=== PATIENT | male | born 1970 | race Caucasian/White ===

== ENCOUNTER 2025-02-18 11:49 | Outpatient (CLI) | payer BC, SELFPAY ==
--- NOTE | ~2025-02-18 | PE_ITS ---
EXAMINATION: PET skull to mid thigh DATE: 02/18/2025 14:06 INDICATION: Malignant neoplasm of mouth, unspecified. TECHNIQUE: Blood glucose level was 121 mg/dL. 9.688 mCi of 18-fluorodeoxyglucose (18-FDG) was administered i.v. Low dose computed tomography (CT) images were acquired from the base of the brain to the proximal thighs for attenuation correction and anatomic localization. Automated exposure control was employed. Dose-length product (DLP) was 1504 mGy-cm. Positron emission tomography (PET) images were acquired in the same distribution. COMPARISON: None FINDINGS: Head/neck: There is near complete opacification of right maxillary sinus with thickening and sclerosis of the sinus perry, consistent with chronic sinusitis. There has been resection of a portion of the right side of the mandible. There are surgical changes in right neck, likely flap reconstructions. There are no pathologically enlarged lymph nodes. There are normal-sized lymph nodes in the parotid glands bilaterally with maximum SUV of 3.1. There are normal-sized left submandibular and right supraclavicular lymph nodes with mildly increased activity. Chest: There is no pneumonia or pleural effusion. Calcified right hilar lymph nodes are consistent with old granulomatous disease. The heart size is normal. There are coronary artery calcifications. No pericardial effusion. There are surgical changes in right anterior chest wall. There is increased activity in the subcutaneous fat and muscle in the posterior thorax, likely inflammation. There is a 13 mm sebaceous cyst in the posterior thorax the left of midline. Abdomen/pelvis/proximal thighs: The liver and gallbladder are normal. Splenomegaly is noted. There is a gastrostomy tube in expected position. The pancreas, adrenal glands, and kidneys are normal. There is trace pelvic ascites. There are no dilated loops of bowel. There are no pathologically enlarged lymph nodes. There is no free intraperitoneal fluid. There is no osseous malignancy. There is increased activity in the posterior pelvis subcutaneous fat and muscle, right worse than left, likely inflammation. IMPRESSION: 1. Normal-sized bilateral parotid, left submandibular, and right supraclavicular lymph nodes with mildly increased activity, which may be reactive. Metastatic disease is not excluded. Reviewed, dictated and finalized at location E. IMPRESSION: 1. Normal-sized bilateral parotid, left submandibular, and right supraclavicula r lymph nodes with mildly increased activity, which may be reactive. Metastatic disease is not excluded.
--- OUTSIDE RECORDS SUMMARY | 2025-02-18 13:02 | XMS_ITS ---
Author Organization [facility] Care Team Providers Care Rail Bonder Name Role Phone BLAIR MADRID Unavailable Unavailable Allergies and adverse reactions No Known Allergies Care Team Name Role Address Phone Organization Dates BLAIR MADRID PCP [address] [place], [address], [place] (Office): : [facility] 05/27/2017 - 06/17/2017 Immunizations Immunization Status Vaccine Details Vaccine Code CodeSystem Marcos e Notes TB 2 Step Mantoux Skin Test completed tuberculin skin test; unspecified formulation lotNumber: [id number] expiry: 10/26/2018 Given 0.1 ml Right Forearm intradermally Step 1 of Multi-step with next step required 98 CVX created date: 05/29/2017 consent date: 05/29/2017 administere d date: 05/28/2017 Mental Status Section Date Assessment Total Score Description 06/17/2017 BIMS 15 cognitively int act CAM 0 No delirium ind icated PHQ-9 00 06/10/2017 BIMS 15 cognitively int act CAM 0 No delirium ind icated PHQ-9 00 Insurance Providers Problems Problem # Description Date of onset Resolved Date Code CodeSystem Concern Status 1 MUSCLE WEAKNESS (GENERALIZED) 05/30/[address] active 2 OTHER ABNORMALITIES OF GAIT AND MOBILITY 05/28/[address] active 3 ESSENTIAL (PRIMARY) HYPERTENSION 05/27/[address] active 4 REAGAN GANGRENE 05/27/[address] active 5 INSOMNIA, UNSPECIFIED 05/27/[address] active 6 MORBID (SEVERE) OBESITY DUE TO EXCESS CALORIES 05/27/[address] active 7 OTHER INFLAMMATORY DISORDERS OF PENIS 05/27/[address] active 8 OTHER POLYOSTEOARTHRITIS 05/27/[address] active 9 SLEEP APNEA, UNSPECIFIED 05/27/[address] active 10 TYPE 2 DIABETES MELLITUS WITH OTHER SKIN COMPLICATIONS 05/27/[address] active 11 UNSPECIFIED ATRIAL FIBRILLATION 05/27/[address] active Reason for Referral No Reasons for Referral Entered Social History Social History Observation Description Start Date End Date Code Code System Current Smoking Status Tobacco smoking consumption unknown 678819645 SNOMED CT Sex Assigned At Male 1970 70162-4 [facility] Gender Identity Sexual Orientation Vital Signs Code Code System Vitals Name Values and Units Timing Information 2339-0 [facility] Blood Sugar Nwatc=762.0 Units=mg/dL 06/17/2017 9279-1 [facility] Respiratory Rate Value=18.0 Units=/m in 06/17/2017 8462-4 [facility] Blood Pressure-Diastolic Value=89 Un its=mmHg 06/17/2017 8480-6 [facility] Blood Pressure-Systolic Nyxbw=303 Un its=mmHg 06/17/2017 8310-5 [facility] Body Temperature Value=97.9 Units= F 06/17/2017 8867-4 [facility] Heart rate Value=90.0 Units=/min 15364-5 [facility] O2 % BldC Oximetry Value=98.0 Units= % 06/17/2017 31084-8 [facility] Pain Level Value=0.0 06/17/2017 51069-9 [facility] Weight Lrhxq=638.6 Units=Lbs 8302-2 [facility] Height Value=72.0 Units=Inches 05/28/2017
--- OUTSIDE RECORDS SUMMARY | 2025-02-18 13:02 | XMS_ITS | Encounter Summary ---
Author Organization [facility] Address [address] [place] [address] Care Team Providers Care Media Law Faculty Member Name Role Phone Unavailable Primary Care Provider Unavailabl e Encounter Details Date Type Department Care Team (Late Contact Info) Description 02/17/2025 External Device Data [facility] ABSTRACTION Provider, Abstract NO ADDRESS ON FILE Social History Tobacco Use Types Packs/Day Years Used Date Smoking Tobacco: Former Cigarettes Smokeless Tobacco: Former Alcohol Use Standard Drinks/Week Comments Not Currently 0 (1 standard drink = 0.6 oz pur e alcohol) Feeling Safe Answer Date Recorded Are you in a relationship wi th someone who hurts you emotionally and/or physically? 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 [facility] [address] [place] [address] documented as of this encounter Visit Diagnoses Not on filedocumented in this encounter
--- OUTSIDE RECORDS SUMMARY | 2025-02-18 13:02 | XMS_ITS ---
Author Organization [facility] Address [address] 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 Chronic heart failure with p reserved ejection fraction (HFpEF) 12/29/2024 HTN (hypertension), benign 12/29/2024 Type 2 diabetes mellitus wit h hyperglycemia, with long-term current use of insulin 12/25/2024 Acute respiratory distress 12/25/2024 Airway compromise 12/25/2024 Tracheostomy status 12/24/2024 Encounter for postoperative care 12/24/2024 Status post tracheostomy 12/24/2024 Lower extremity edema 12/24/2024 Malignant neoplasm of lower gum 12/12/2024 Other shock 12/12/2024 Acute blood loss anemia 12/12/2024 Paroxysmal atrial fibrillati on with rapid ventricular response 12/11/2024 Malignant neoplasm of alveolus of mandible 12/10 Morbid obesity with BMI of 50.0-59.9, adult 11/27 Iron deficiency anemia 12/10/2024 Thrombocytopenia affecting 12/10/2024 Atrial fibrillation 12/10/2024 Protein-calorie malnutrition, moderate Overview (12/10/2024): 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 fib Asymptomatic Lipids in June TC 126 LDL 63 Encounter for screening for malignant neoplasm 0 06/30/2024 Overview (10/29/2024): PSA 0.35. Congestive heart failure 12/30/2023 Overview (10/29/2024): apparent on echo 08/2017 w/ EF 45-50% (on [facility] eval after new dx A.fib 04/2017). f/b [facility]. Edema 07/20/2021 Overview (10/29/2024): Uses compression garments Sounds like he saw vascular with SC, but f/u was PRN CANELO (obstructive sleep apnea) 07/20/2021 Overview (10/29/2024): dx on sleep study at [facility] 12/2018. Titration study identified BiPap treatment need. 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 Other Current Plans ERTAPENEM (INVANZ) * IV * DAILY X 6 WEEKS* Plan Start Date:01/26/2025 Plan Provider:Jose Edwards MD Linked Problems Acute osteomyelitis of kp ble Treatment Medications No medications scheduled. Past Treatment and Therapy Plans No past plan information found. Lifetime Dose Tracking * Chemical Lifetime Dose Automatic Entry Manual Entr y Effective Dose 6.77 mSv 6.77 mSv 0 mSv Total DLP 562.52 DLP 562.52 DLP 0 DLP CTDIvol Max 16.84 mGy 16.84 mGy 0 mGy CTDIvol Min 16.84 mGy 16.84 mGy 0 mGy
--- OUTSIDE RECORDS SUMMARY | 2025-02-18 13:03 | XMS_ITS | Clinical Summary ---
Author Organization [facility] Address [address] [place] [address] Phone Care Team Providers Care Line Crew Supervisor Name Role Phone Unavailable Primary Care Provider Unavailabl e Allergies No known active allergies Medications omeprazole (PriLOSEC) 20 mg Capsule, Delayed Release(E.C.) Take 20 mg by mouth daily. 07/20/19 Active acetaminophen (TYLENOL) 500 mg tablet Take 1,000 mg by mouth every 6 hours as needed for Pain. Active Insulin [place], Disposable, (UltiCare Pen Needle) 31 gauge x 5/16 Needle Use with insulin injections up FOUR TIMES A DAY Active atorvastatin (LIPITOR) 20 mg tablet Take 20 mg by mouth daily. 07/20/19 Active carvediloL (COREG) 6.25 mg tablet Take 6.25 mg by mouth 2 times daily. 11/08/19 Active cetirizine (ZyrTEC) 10 mg tablet Take 10 mg by mouth daily. Active dofetilide (TIKOSYN) 500 mcg capsule Take 500 mcg by mouth 2 times daily. Active NovoLOG Flexpen U-100 Insulin 100 unit/mL (3 mL) pen syringe inject per sliding scale with meals - Below 80 - 27 units, 81-150 - 30 units, 151- 200 units - 33 units, 201- 250 - 36 units, 251-300 - 39 units, 301-350 - 42 units, 351 - 400 - 45 units, over 400 - 48 units 07/20/19 Active lisinopriL (PRINIVIL) 40 mg tablet Take 20 mg by mouth daily. 07/20/19 Active Ozempic 2 mg/dose (8 mg/3 mL) Pen Injector INJECT 2 MG UNDER THE SKIN ONCE WEEKLY 07/20/19 Active metFORMIN (GLUCOPHAGE) 1,000 mg tablet Take 1,000 mg by mouth 2 times daily with meals. Active insulin glargine (LANTUS) 100 unit/mL pen syringe Inject 62 Units by subcutaneous injection daily at bedtime. 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 Max Daily Amount: 6 Tablets 40 Tablet 11/26/19 25 Active ferrous sulfate 325 mg (65 mg iron) tablet Take 325 mg by mouth daily. Active apixaban (Eliquis) 5 mg tablet Take 5 mg by mouth 2 times daily. Active HYDROcodone-acetam inophen (NORCO) 5-325 mg tabletIndications: Post-op pain Take 1 Tablet by mouth every 4 hours as needed for Pain, Moderate. Max Daily Amount: 6 Tablets 30 Tablet 01/20/20 25 Active metroNIDAZOLE (FLAGYL) 500 mg tablet 1 Tablet (500 mg) by G Tube route every 8 hours. 63 Tablet 01/20/20 25 Active Additional Information Patient not taking.Reported on 02/02/2025 mupirocin (BACTROBAN) 2 % OintmentIndication s:MSSA (methicillin susceptible Staphylococcus aureus) infection Apply to affected area daily. 22 Gram 1 02/03/20 25 Active cefePIME (MAXIPIME) 2,000 mg in sodium chloride 0.9 % for home infusion Inject 1 Dose by intravenous injection every 12 hours for 21 days. 42 Dose 01/20/20 25 025 Active Problems Problem Noted Date Diagnosed Date [...] Acute Squamous cell carcinoma of oral cavity Dyslipidemia 10/29/2024 Overview (10/29/2024): Takes atorvastatin 20 mg daily No aspirin, on warfarin for A. fib Asymptomatic Lipids in June TC 126 LDL 63 Encounter for screening for malignant neoplasm 0 06/30/2024 Overview (10/29/2024): PSA 0.35. Congestive heart failure 12/30/2023 Overview (10/29/2024): apparent on echo 08/2017 w/ EF 45-50% (on [facility] eval after new dx A.fib 04/2017). f/b [facility]. Edema 07/20/2021 Overview (10/29/2024): Uses compression garments Sounds like he saw vascular with SC, but f/u was PRN CANELO (obstructive sleep apnea) 07/20/2021 Overview (10/29/2024): dx on sleep study at [facility] 12/2018. Titration study identified BiPap treatment need. 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) 02/16/2025 Chart Note [facility] [address] [facility] [address] [place] [address] Lakshmi Thomson, ARTI 02/12/2025 Abstract [facility] [address] [facility] [address] [place] [address] Jose Edwards MD 02/10/2025 Telephone [facility] [address] [facility] [address] [place] [address] Jaquelin Samuels, RN Follow Up 02/08/2025 Telephone [facility] [address] [facility] [address] [place] [address] Jaquelin Samuels, RN Home Health 02/08/2025 Abstract [facility] INFECT[facility] [address] [facility] [address] [place] [address] Jose Edwards MD 02/08/2025 Telephone [facility] IN[facility] B [address] [facility] [address] [place] [address] Jose Edwards MD Verbal orders 02/05/2025 Abstract [facility] [address] [facility] [address] [place] [address] Jose Edwards MD 02/02/2025 11:00 AM CDT Office [facility] [address] [facility] [address] [place] [address] Lakshmi Thomson SLP 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); 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); Oropharyngeal dysphagia 02/02/2025 10:30 AM CDT Office [facility] [address] [facility] [address] [place] [address] Nitin Martinez PA 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) 02/02/2025 9:30 AM CDT [facility] [address] [facility] [address] [place] [address] Jose Edwards MD MSSA (methicillin susceptible Staphylococcus aureus) infection (Primary Dx) 02/01/2025 Abstract [facility] INFECT[facility] B [address] [facility] [address] [place] [address] Jose Edwards MD 01/29/2025 Telephone [facility] [address] [facility] [address] [place] [address] Jaquelin Samuels, JADE Home Health 01/29/2025 Chart Note [facility] Oncology Patient Navigation [address] [place] [address] Miladis Reed, RN Nurse Navigation (Follow up) 01/28/2025 Abstract [facility] B [address] [facility] [address] [place] [address] Jose Edwards MD 01/27/2025 Chart Note [facility] Oncology Patient Navigation [address] [place] [address] Miladis Reed, RN Nurse Navigation (Follow up) 01/26/2025 11:13 AM CDT - 01/26/2025 11:59 PM CDT Hospital Encounter [facility] Cancer [facility] Center [facility] [address] [place] [address] Jose Edwards MD Infusion Chair 11, 2nd Floor [place] Discharge Disposition: Home or Self Care 01/26/2025 10:30 AM CDT Office [facility] [address] [facility] [address] [place] [address] Stanley Stern MD 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 Patient Navigation [address] [place] [address] Miladis Reed, RN Nurse Navigation (Follow up) 01/26/[address] [facility] Patient Navigation [address] [place] [address] Sahra Cortés, DIRECTOR OF BUSINESS APPLICATIONS Information 01/25/2025 Chart Note [facility] Oncology Patient Navigation [address] [place] [address] Miladis Reed, RN Nurse Navigation (Follow up) 01/25/2025 Abstract [facility] B [address] [facility] [address] [place] [address] Jose Edwards MD 01/25/[address] [facility] Patient Navigation [address] [place] [address] Miladis Reed, RN Nurse Navigation (Follow up) 01/22/2025 Telephone [facility] [address] [facility] [address] [place] [address] Jose Edwards MD change antibiotics 01/22/2025 Telephone [facility] [address] [facility] [address] [place] [address] Jose Edwards MD Diarrhea 01/22/2025 Telephone [facility] Endocrinology [address] [facility] [address] [place] [address] Jose Edwards MD Medication Problem 01/22/2025 Chart Note [facility] Oncology Patient Navigation [address] [place] [address] Miladis Reed, RN Nurse Navigation (Follow up) 01/22/2025 Chart Note [facility] Oncology Patient Navigation [address] [place] [address] Miladis Reed, RN Nurse Navigation (Follow up) 01/21/2025 Abstract [facility] [address] [facility] [address] [place] [address] Jose Edwards MD 01/21/2025 Chart Note [facility] Oncology Patient Navigation [address] [place] [address] Miladis Reed, RN Nurse Navigation (Follow up) 01/20/2025 Chart Note [facility] Oncology Patient Navigation [address] [place] [address] Miladis Reed, RN Nurse Navigation (Follow up) 01/12/2025 External Device Data STL ABSTRACTION Provider, Abstract 01/12/2025 External Device Data STL ABSTRACTION Provider, Abstract 01/12/2025 Telephone [facility] Spiritual Care [address] [place] [address] Darron Ko Spiritual Care (Met with pt in person; he now has all my contact info and I will support moving forward.) 01/11/2025 Chart Note [facility] Oncology Patient Navigation [address] [place] [address] Miladis Reed, RN Nurse Navigation (Follow up) 01/05/2025 Telephone [facility] [address] [place] [address] Darron Ko Spiritual Care 01/04/2025 Chart Note [facility] Oncology Patient Navigation [address] [place] [address] Miladis Reed, RN Nurse Navigation (Follow up) 01/01/2025 9:36 AM CDT Anesthesia Event [facility] Operating Room [address] [place] [address] Theo Ni MD 01/01/2025 9:01 AM CDT - 01/01/2025 12:01 PM CDT Surgery [facility] Operating Room [address] [place] [address] Stanley Stern MD NECK INCISION AND DRAINAGE 01/01/2025 Chart Note [facility] Oncology Patient Navigation [address] [place] [address] Miladis Reed, RN Nurse Navigation (Follow up) 12/31/2024 Chart Note [facility] [address] [facility] [address] [place] [address] Jaquelin Samuels RN 12/31/2024 Chart Note [facility] [address] [facility] [address] [place] [address] Stanley Stern MD 12/30/2024 1:03 PM CDT Anesthesia Event [facility] Operating Room [address] [place] [address] Rochelle Galaviz MD 12/30/2024 12:45 PM CDT - 12/30/2024 2:51 PM CDT Surgery [facility] Operating Room [address] [place] [address] Evan Johnston MD NECK INCISION AND DRAINAGE 12/29/2024 External Device Data STL ABSTRACTION Provider, Abstract 12/29/2024 Chart Note [facility] [address] [facility] [address] [place] [address] Jaquelin Samuels RN 12/18/2024 12:47 PM CDT - 12/18/2024 4:24 PM CDT Surgery [facility] Operating Room [address] [place] [address] Stanley Stern MD NECK EXPLORATION 12/18/2024 11:55 AM CDT Anesthesia Event [facility] Operating Room [address] [place] [address] Vikas Hendrickson MD Miller, Brittany M, AA-C 12/16/2024 External Device Data STL ABSTRACTION Provider, Abstract 12/15/2024 External Device Data STL ABSTRACTION Provider, Abstract 12/15/2024 External Device Data STL ABSTRACTION Provider, Abstract 12/15/2024 Chart Note [facility] Oncology Patient Navigation [address] [place] [address] Miladis Reed, RN Nurse Navigation (Follow up) 12/14/2024 Chart Note [facility] Oncology Patient Navigation [address] [place] [address] Ginny Hutchinson, RN Nurse Navigation (Follow up) 12/13/2024 12:40 PM CDT - 12/13/2024 5:23 PM CDT Surgery [facility] Operating Room [address] [place] [address] Stanley Stern MD NECK EXPLORATION WITH EVACUATION OF HEMATOMA 12/13/2024 12:32 PM CDT Anesthesia Event [facility] Operating Room [address] [place] [address] Nancy Baeza MD Redmond, Robert Ryan, MILAGRO 12/13/2024 Travel 12/12/2024 5:08 AM CDT Anesthesia Event [facility] Operating Room [address] [place] [address] Evan Espinal MD Weber, Brian Louis, MD 12/12/2024 4:15 AM CDT - 12/12/2024 6:58 AM CDT Surgery [facility] Operating Room [address] [place] [address] Stanley Stern MD NECK EXPLORATION 12/09/2024 7:29 AM CDT Anesthesia Event [facility] Operating Room [address] [place] [address] Williams Perez MD Algra, Linda J, MD 12/09/2024 7:15 AM CDT - 12/09/2024 4:03 PM CDT Surgery [facility] Operating Room [address] [place] [address] Evan Johnston MD NECK DISSECTION 12/09/2024 5:00 AM CDT - 01/19/2025 7:31 PM CDT Hospital Encounter [facility] Med Surg Step Down [facility] [address] [place] [address] Evan Johnston MD Squamous cell carcinoma of oral cavity ([facility]/HCC) Discharge Disposition: Home Health Care [facility] 12/08/2024 Telephone [facility] [address] [facility] [address] [place] [address] Stanley Stern MD Care Plan 12/08/2024 Chart Note [facility] Oncology Patient Navigation [address] [place] [address] Ginny Hutchinson, RN Nurse Navigation (Follow up) 12/07/2024 Chart Note [facility] Oncology Patient Navigation [address] [place] [address] Miladis Reed, RN Nurse Navigation (Follow up) 12/03/2024 Chart Note [facility] Oncology Patient Navigation [address] [place] [address] Miladis Reed, RN Nurse Navigation (Follow up) 11/30/2024 2:24 PM CDT - 11/30/2024 11:59 PM CDT Hospital Encounter [facility] [address] [place] [address] Evan Johnston MD Discharge Disposition: Home or Self Care 11/30/2024 Chart Note [facility] Oncology Patient Navigation [address] [place] [address] Miladis Reed, RN Nurse Navigation (Follow up) 11/28/2024 8:49 AM CDT - 11/28/2024 11:59 PM CDT Hospital Encounter [facility] Ultrasound [address] [facility] [address] [place] [address] Good Yi MD Discharge Disposition: Home or Self Care 11/26/2024 Chart Note [facility] Oncology Patient Navigation [address] [place] [address] Miladis Reed, RN Nurse Navigation (Follow up) 11/25/2024 Chart Note [facility] Patient Navigation [address] [place] [address] Miladis Reed, RN Nurse Navigation (Follow up) 11/23/2024 Telephone [facility] Nutrition Services S [facility] [address] [place] [address] Dietitian Services (Attempt to Contact) from Last 3 Months Immunizations Immunization Administration Dates Next Due (ADACEL/BOOSTRIX)(10 YR UP) TDAP VACCINE, 0.5ML, IM 07/04/2010 (PNEUMOVAX 23)(50 YRS UP) PN EUMOCOCCAL POLYSACCHARIDE (PPV23) 0.5 ML, IM 07/20/2021 Hepatitis B Vaccine 02/24/2007,10/03/2006,2006 Influenza Seasonal Unspecifi ed Formulation IM 02/06/2017,02/05/2014 Influenza Seasonal Unspecifi ed Formulation PF IM 02/21/2016,02/14/2015 Influenza, Unspecified Formulation 02/15,02/25/2020,02/04/2019,02/06,02/21/2016,02/14/2015,02/05/2014 Social History Tobacco Use Types Packs/Day Years Used Date Smoking Tobacco: Former Cigarettes Smokeless Tobacco: Former Tobacco Cessation:Counseling Given: Not Answered Alcohol Use Standard Drinks/Week Comments Not Currently [...] on file Sexual Orientation Not on file Last Filed Vital Signs Vital Sign Reading Time Taken Comments Blood Pressure 145/55 02/02/2025 9:21 AM CDT Pulse 59 02/02/2025 9:21 AM CDT Temperature 36.8 C (98.3 F) 01/26/2025 12:46 PM CDT Respiratory Rate 18 01/26/2025 12:46 PM CDT Oxygen Saturation 100% 01/19/2025 3:00 PM CDT Inhaled Oxygen Concentration - - Weight 166.5 kg (367 lb) 02/02/2025 9:21 AM CDT Height 182.9 cm (6') 02/02/2025 9:21 AM CDT Body Mass Index 49.77 02/02/2025 9:21 AM CDT Plan of Treatment Upcoming Encounters Date Type Department Care Team (Late st Contact Info) Description 06/24/2025 11:20 AM 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 [place] [address] Health Maintenance Due Date Last Done Comments DIABETES ANNUAL FOOT EXAM 1988 DIABETES ANNUAL RETINAL EXAM 1988 DIABETES MICROALBUMIN ANNUAL SCREEN 1988 LDL CHOLESTEROL ANNUAL 1988 HEPATITIS B VACCINES (1 of 3 - 19+ 3-dose series) 1989 02/24/2007, 10/03/2006, 08/21/2006 COLORECTAL SCREENING 2015 Colorectal Cancer Screening 2015 FIT-DNA Q 3 years 2015 FIT/FOBT Q 1 year 2015 Flex Sig/CT Colonography Q 5 years 2015 ZOSTER VACCINE (1 of 2) 2020 DTAP/TDAP/TD VACCINES (2 - T d or Tdap) 07/04/2020 07/04/2010 Preventative Visit- Commercial 04/29/2024 INFLUENZA VACCINE (#1) 2024 7, 02/21/2016, 02/14/2015, Additional history exists DIABETES HBA1C Q 6 MONTHS 05/13/2025 11/10/2024, Medical Devices Implanted Type Area Staffing And Scheduling Coordinator Device Identifier Shelf Expiration Date Model / Serial / Lot Clip Micro [place] 6s [id number] - [id number] Implanted:Qty: 1 on 12/09/2024 by Stanley Stern MD at [facility] Clip Right: Neck VITALITEC INTL [id number] 07/27/2029 [id number] / / [id number] Clip Micro [place] 6s [id number] - [id number] Implanted:Qty: 1 on 12/09/2024 by Stanley Stern MD at [facility] Clip Right: Neck VITALITEC INTL [id number] 07/27/2029 [id number] / / [id number] Windows Server Architect Ligaclip Sml Mcs20 - [id number] Implanted:Qty: 1 on 12/09/2024 by Evan Johnston MD at [facility] Clip Right: Neck [employer] [id number] 09/26/2029 MCS20 / / [id number] Windows Server Architect Ligaclip Multi Med Msm20 - [id number] Implanted:Qty: 1 on 12/09/2024 by Evan Johnston MD at [facility] Clip Right: Neck J[employer] [id number] 09/26/2029 MSM20 / / [id number] Windows Server Architect Ligaclip Sml Mcs20 - [id number] Implanted:Qty: 1 on 12/09/2024 by Stanley Stern MD at [facility] Clip Left: Arm J[employer]- [employer] [id number] 09/26/2029 MCS20 / / [id number] Windows Server Architect Ligaclip Mca Multi 30 Med 11in Mcm30 - [id number] Implanted:Qty: 1 on 12/09/2024 by Stanley Stern MD at [facility] Clip Left: Arm [employer] [id number] 09/26/2029 MCM30 / / [id number] Windows Server Architect Ligaclip Sml Mcs20 - [id number] Implanted:Qty: 1 on 12/09/2024 by Stanley Stern MD at [facility] Clip Left: Arm [employer]- [employer] [id number] 09/26/2029 MCS20 / / [id number] Clip Micro [place] 6s [id number] - [id number] Implanted:Qty: 1 on 12/12/2024 by Stanley Stern MD at [facility] Clip N/A: Neck VITAL[employer] INTL [id number] 07/27/2029 [id number] / / [id number] Windows Server Architect Ligaclip Sml Mcs20 - [id number] Implanted:Qty: 1 on 12/13/2024 by Stanley Stern MD at [facility] Clip N/A: Neck J[employer] [id number] 09/26/2029 MCS20 / / [id number] Windows Server Architect Ligaclip Multi Med Msm20 - [id number] Implanted:Qty: 1 on 12/13/2024 by Stanley Stern MD at [facility] Clip N/A: Neck J[employer] [id number] 09/25/2029 MSM20 / / Windows Server Architect Ligaclip Sml Mcs20 - [id number] Implanted:Qty: 1 on 12/18/2024 by Stanley Stern MD at [facility] Clip N/A: Neck J[employer]J- [employer] [id number] 09/26/2029 MCS20 / / [id number] Windows Server Architect Ligaclip Multi Med Msm20 - [id number] Implanted:Qty: 1 on 12/18/2024 by Stanley Stern MD at [facility] Clip N/A: Neck J[employer] [id number] 09/26/2029 MSM20 / / [id number] Windows Server Architect Ligaclip Mca Multi 30 Med 11in Mcm30 - [id number] Implanted:Qty: 1 on 12/18/2024 by Stanley Stern MD at [facility] Clip N/A: Neck J[employer] [id number] 09/26/2029 MCM30 / / [id number] Windows Server Architect Ligaclip Sml Mcs20 - [id number] Implanted:Qty: 1 on 12/18/2024 by Stanley Stern MD at [facility] Clip N/A: Neck J[employer]J- [employer] [id number] 09/26/2029 MCS20 / / [id number] Windows Server Architect Ligaclip Multi Med Msm20 - [id number] Implanted:Qty: 1 on 01/01/2025 by Stanley Stern MD at [facility] Clip J&J- [employer] [id number] 11/26/2029 [facility]20 / / [id number] Windows Server Architect Ligaclip Sml [facility]20 - [id number] Implanted:Qty: 1 on 01/01/2025 by Stanley Stern MD at [facility] Clip J&J- [employer] [id number] 07/27/2029 [facility]20 / / [id number] Tube Feeding Josee Gastro 20fr Enfit Cnc 8100-20 - [id number] Implanted:Qty: 1 on 12/30/2024 by Jose Leslie MD at [facility] Feeding Device Abdomen [employer] fka HALYARD [id number] 08/26/2027 8100-20 / / [id number] Wax Bone Natural 2.5gm Ylw Ofmvmv15 - [id number] Implanted:Qty: 1 on 12/09/2024 by Stanley Stern MD at [facility] Hemostatic Left: Arm [employer] [id number] 02/24/2029 [id number] / / [id number] Hemostatic Surgifoam Sz12-7 1971 - [id number] Implanted:Qty: 1 on 12/09/2024 by Stanley Stern MD at [facility] Hemostatic Right: Neck J&J- [employer] [id number] 06/24/20271971 / / Hemostatic Surgifoam Sz100 1973 - [id number] Implanted:Qty: 1 on 12/13/2024 by Stanley Stern MD at [facility] Hemostatic N/A: Neck J&J- [employer] 10/06/20281973 / / [id number] Motel Maid Microvasc Anastomotic 4.0mm [id number] - [id number] Implanted:Qty: 1 on 12/09/2024 by Stanley Stern MD at [facility] Other Right: Neck [employer] 09/27/2027 [id number] / / Motel Maid Microvasc Anastomotic 1.5mm Yrs8290 - [id number] Implanted:Qty: 1 on 12/12/2024 by Stanley Stern MD at [facility] Other Right: Neck [employer] [id number] 04/01/2028 [id number] / / [id number] Motel Maid Microvasc Anastomotic 3.5mm [id number] - [id number] Implanted:Qty: 1 on 12/12/2024 by Stanley Stern MD at [facility] Other Right: Neck SYNOVIS- MICRO CO ALLIANCE [id number] 01/19/2029 [id number] / / [id number] Motel Maid Microvasc Anastomotic 1.5mm [id number] - [id number] Implanted:Qty: 1 on 12/13/2024 by Stanley Stern MD at [facility] Other Right: Neck [employer]OVIS[employer] MI[employer] ALLIANCE [id number] 04/01/2028 [id number] / / [id number] Motel Maid Microvasc Anastomotic 1.5mm [id number] - [id number] Implanted:Qty: 1 on 12/13/2024 by Stanley Stern MD at [facility] Other N/A: Neck SYNOVIS- MI[employer] ALLIANCE [id number] / / Description:ischemic time Synthes 9 Hole Diameta Plate Implanted:Qty: 1 on 12/09/2024 by Stanley Stern MD at [facility] Plate Left: Radius SY[employer]THES [employer] [facility] 02.110.109S / / Description:[id number] Screw Cortex Slftp T8 2.4x16mm 201.766 - Sload 43, Sterilized 12/07/24 Implanted:Qty: 2 on 12/09/2024 by Stanley Stern MD at [facility] Screw Left: Radius J&J- DEPUY SYNTHES 201.766 / LOAD 43, STERILIZED 12/07/24 / Screw Cortex Slftp T8 2.4x18mm 201.768 - Sload 43, Sterilized 12/07/24 Implanted:Qty: 2 on 12/09/2024 by Stanley Stern MD at [facility] Screw Left: Radius J&J- DEPUY SYNTHES 201.768 / LOAD 43, STERILIZED 12/07/24 / Screw Cortex Slftp 3.5x18mm 204.818 - Sload 27, Sterilzied 12/07/24 Implanted:Qty: 2 on 12/09/2024 by Stanley Stern MD at [facility] Screw Left: Radius J&J- DEPUY SYNTHES 204.818 / LOAD 27, STERILZIED 12/07/24 / Screw Cortex Slftp 3.5x16mm 204.816 - Sload 27, Sterilzied 12/07/24 Implanted:Qty: 2 on 12/09/2024 by Stanley Stern MD at [facility] Screw Left: Radius J&J- DEPUY SYNTHES 204.816 / LOAD 27, STERILZIED 12/07/24 / Screw Matrixmandible St 2.0mm 04.503.410.01 - [id number] Implanted:Qty: 2 on 12/09/2024 by vEan Johnston MD at [facility] Screw J&J- DEPUY SYNTHES 04.503.410. 01 / / Screw Matrixmandible St Loc 2.0mm 503.610.01 - [id number] Implanted:Qty: 1 on 12/09/2024 by Evan Johnston MD at [facility] Screw J&J- DEPUY SYNTHES 04.503.610. 01 / / Screw Matrixmandible St Loc 2.0mm .612.01 - [id number] Implanted:Qty: 1 on 12/09/2024 by Evan Johnston MD at [facility] Screw J&J- DEPUY SYNTHES 04.503.612. 01 / / Screw Matrixmandible St Loc 2.0mm .614.01 - [id number] Implanted:Qty: 2 on 12/09/2024 by Evan Johnston MD at [facility] Screw J&J- DEPUY SYNTHES 04.503.614. 01 / / Screw Sd Loc 2.0x6mm 04..546.01 - [id number] Implanted:Qty: 1 on 12/09/2024 by Evan Johnston MD at [facility] Screw J&J- DEPUY SYNTHES 04.503.546. 01 / / Screw Sd Loc 2.0x8mm 503.548.01 - [id number] Implanted:Qty: 4 on 12/09/2024 by Evan Johnston MD at [facility] Screw J&J- DEPUY SYNTHES 503.548. 01 / / Matrixmandbl Screw 2.0x8mm Implanted:Qty: 2 on 12/09/2024 by Evan Johnston MD at [facility] Screw SYNTHES-STRAT EC- MAXIFACIAL 503.508. 01 / / Shiley Tracheostomy Tube Xlt Cuffed Implanted:Qty: 1 on 12/09/2024 by Stanley Stern MD at [facility] N/A: Neck [id number] 12/28/2028 [id number] / / [id number] Explanted Type Area Staffing And Scheduling Coordinator Device Identifier Shelf Expiration Date Model / Serial / Lot Motel Maid Microvasc Anastomotic 2.0mm [id number] - [id number] Explanted:Qty: 1 on 12/12/2024 by Stanley Stern MD at [facility] Other Right: Neck [employer]IS[employer] MI[employer] ALLIANCE [id number] 07/28/2028 [id number] / / [id number]- [id number] Screw Matrixmandible St 2.0mm .503.410.01 - Sload 12/08/2024 Implanted:Qty: 1 on 12/13/2024 by Stanley Stern MD at [facility] Explanted:Qty: 1 on 12/30/2024 by Evan Johnston MD at [facility] Screw N/A: Mandible J&J- DEPUY SYNTHES 04.503.4 10.01 / LOAD 43 12/09/19 25 / Screws Explanted:Qty: 4 on 12/18/2024 by Stanley Stern MD at [facility] N/A: Neck 12mm Screw Synthes Matrix Mandible Implanted:Qty: 2 on 12/09/2024 by Evan Johnston MD at [facility] Explanted:Qty: 2 on 12/30/2024 by Evan Johnston MD at [facility] Mandible 04.503.4 03.29 Hole Recon Plate Implanted:Qty: 1 on 12/09/2024 by Evan Johnston MD at [facility] Explanted:Qty: 1 on 12/30/2024 by Evan Johnston MD at [facility] Right: Mandible 04.503.7 Description:Not all Synthes components,Requisition, [id number]. 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) Oropharyngeal dysphagia TELEMETRY REPORT 01/20/2025 12:3 0 PM CDT POC GLUCOSE Routine 01/19/2025 12:26 PM CDT POC GLUCOSE Routine 01/19/2025 9:04 AM CDT C-REACTIVE PROTEIN Routine 01/19/2025 6: 51 AM CDT CBC WITHOUT DIFFERENTIAL Routine 025 6:51 AM CDT BASIC METABOLIC PANEL Routine 01/19/2025 6:51 AM CDT POC GLUCOSE Routine 01/19/2025 4:16 AM CDT POC GLUCOSE Routine 01/19/2025 12:22 AM CDT POC GLUCOSE Routine 01/18/2025 7:53 PM CDT POC GLUCOSE Routine 01/18/2025 4:04 PM CDT POC GLUCOSE Routine 01/18/2025 12:32 PM CDT POC GLUCOSE Routine 01/18/2025 8:07 AM CDT MAGNESIUM LEVEL Routine 01/18/2025 4:26 AM CDT CBC WITHOUT DIFFERENTIAL Routine 025 4:26 AM CDT BASIC METABOLIC PANEL Routine 01/18/2025 4:26 AM CDT POC GLUCOSE Routine 01/18/2025 4:24 AM CDT POC GLUCOSE Routine 01/17/2025 11:23 PM CDT POC GLUCOSE Routine 01/17/2025 7:45 PM CDT POC GLUCOSE Routine 01/17/2025 3:37 PM CDT POC GLUCOSE Routine 01/17/2025 11:45 AM CDT POC GLUCOSE Routine 01/17/2025 8:57 AM CDT CBC WITHOUT DIFFERENTIAL Routine 025 3:33 AM CDT BASIC METABOLIC PANEL Routine 01/17/2025 3:33 AM CDT POC GLUCOSE Routine 01/17/2025 3:31 AM CDT POC GLUCOSE Routine 01/16/2025 11:48 PM CDT POC GLUCOSE Routine 01/16/2025 10:22 PM CDT POC GLUCOSE Routine 01/16/2025 8:10 PM CDT POC GLUCOSE Routine 01/16/2025 5:34 PM CDT POC GLUCOSE Routine 01/16/2025 4:27 PM CDT POC GLUCOSE Routine 01/16/2025 1:19 PM CDT POC GLUCOSE Routine 01/16/2025 8:27 AM CDT POC GLUCOSE Routine 01/16/2025 3:07 AM CDT BRAIN NATRIURETIC PEPTIDE, BNP OR PROBNP Routine 01/16/2025 3:06 AM CDT CBC WITHOUT DIFFERENTIAL Routine 025 3:06 AM CDT BASIC METABOLIC PANEL Routine 01/16/2025 3:06 AM CDT POC GLUCOSE Routine 01/15/2025 11:15 PM CDT POC GLUCOSE Routine 01/15/2025 8:01 PM CDT POC GLUCOSE Routine 01/15/2025 1:57 PM CDT POC GLUCOSE Routine 01/15/2025 8:35 AM CDT POC GLUCOSE Routine 01/15/2025 4:23 AM CDT CBC WITHOUT DIFFERENTIAL Routine 025 3:18 AM CDT BASIC METABOLIC PANEL Routine 01/15/2025 3:18 AM CDT POC GLUCOSE Routine 01/14/2025 11:58 PM CDT POC GLUCOSE Routine 01/14/2025 7:44 PM CDT POC GLUCOSE Routine 01/14/2025 4:13 PM CDT POC GLUCOSE Routine 01/14/2025 12:13 PM CDT POC GLUCOSE Routine 01/14/2025 8:39 AM CDT CBC WITHOUT DIFFERENTIAL Routine 025 3:16 AM CDT BASIC METABOLIC PANEL Routine 01/14/2025 3:16 AM CDT MAGNESIUM LEVEL Routine 01/14/2025 3:16 AM CDT PHOSPHORUS Routine 01/14/2025 3:16 AM CDT POC GLUCOSE Routine 01/14/2025 3:13 AM CDT POC GLUCOSE Routine 01/14/2025 12:21 AM CDT POC GLUCOSE Routine 01/13/2025 8:28 PM CDT POC GLUCOSE Routine 01/13/2025 4:07 PM CDT POC GLUCOSE Routine 01/13/2025 12:17 PM CDT POC GLUCOSE Routine 01/13/2025 8:24 AM CDT POC GLUCOSE Routine 01/13/2025 4:11 AM CDT CBC WITHOUT DIFFERENTIAL Routine 025 3:19 AM CDT BASIC METABOLIC PANEL Routine 01/13/2025 3:19 AM CDT MAGNESIUM LEVEL Routine 01/13/2025 3:19 AM CDT PHOSPHORUS Routine 01/13/2025 3:19 AM CDT POC GLUCOSE Routine 01/13/2025 12:19 AM CDT POC GLUCOSE Routine 01/12/2025 8:02 PM CDT POC GLUCOSE Routine 01/12/2025 4:50 PM CDT POC GLUCOSE Routine 01/12/2025 12:32 PM CDT POC GLUCOSE Routine 01/12/2025 8:12 AM CDT POC GLUCOSE Routine 01/12/2025 3:09 AM CDT CBC WITHOUT DIFFERENTIAL Routine 025 3:03 AM CDT BASIC METABOLIC PANEL Routine 01/12/2025 3:03 AM CDT MAGNESIUM LEVEL Routine 01/12/2025 3:03 AM CDT PHOSPHORUS Routine 01/12/2025 3:03 AM CDT POC GLUCOSE Routine 01/12/2025 12:01 AM CDT POC GLUCOSE Routine 01/11/2025 7:58 PM CDT POC GLUCOSE Routine 01/11/2025 6:40 PM CDT US VENOUS DOPPLER LEG BILATERAL Routine 01/11/2025 5:29 PM CDT POC GLUCOSE Routine 01/11/2025 12:22 PM CDT POC GLUCOSE Routine 01/11/2025 8:02 AM CDT CBC WITHOUT DIFFERENTIAL Routine 025 3:44 AM CDT BASIC METABOLIC PANEL Routine 01/11/2025 3:44 AM CDT MAGNESIUM LEVEL Routine 01/11/2025 3:44 AM CDT PHOSPHORUS Routine 01/11/2025 3:44 AM CDT POC GLUCOSE Routine 01/11/2025 3:25 AM CDT POC GLUCOSE Routine 01/10/2025 11:18 PM CDT POC GLUCOSE Routine 01/10/2025 8:27 PM CDT POC GLUCOSE Routine 01/10/2025 12:07 PM CDT POC GLUCOSE Routine 01/10/2025 7:45 AM CDT CBC WITHOUT DIFFERENTIAL Routine 025 3:26 AM CDT BASIC METABOLIC PANEL Routine 01/10/2025 3:26 AM CDT MAGNESIUM LEVEL Routine 01/10/2025 3:26 AM CDT PHOSPHORUS Routine 01/10/2025 3:26 AM CDT POC GLUCOSE Routine 01/10/2025 3:25 AM CDT POC GLUCOSE Routine 01/09/2025 11:54 PM CDT POC GLUCOSE Routine 01/09/2025 8:03 PM CDT POC GLUCOSE Routine 01/09/2025 4:15 PM CDT POC GLUCOSE Routine 01/09/2025 12:29 PM CDT POC GLUCOSE Routine 01/09/2025 8:16 AM CDT POC GLUCOSE Routine 01/09/2025 4:25 AM CDT C-REACTIVE PROTEIN Routine 01/09/2025 3: 57 AM CDT CBC WITHOUT DIFFERENTIAL Routine 025 3:57 AM CDT BASIC METABOLIC PANEL Routine 01/09/2025 3:57 AM CDT MAGNESIUM LEVEL Routine 01/09/2025 3:57 AM CDT PHOSPHORUS Routine 01/09/2025 3:57 AM CDT POC GLUCOSE Routine 01/08/2025 11:59 PM CDT POC GLUCOSE Routine 01/08/2025 8:27 PM CDT POC GLUCOSE Routine 01/08/2025 5:27 PM CDT POC GLUCOSE Routine 01/08/2025 12:12 PM CDT POC GLUCOSE Routine 01/08/2025 8:06 AM CDT POC GLUCOSE Routine 01/08/2025 4:03 AM CDT CBC WITHOUT DIFFERENTIAL Routine 025 3:02 AM CDT BASIC METABOLIC PANEL Routine 01/08/2025 3:02 AM CDT MAGNESIUM LEVEL Routine 01/08/2025 3:02 AM CDT PHOSPHORUS Routine 01/08/2025 3:02 AM CDT POC GLUCOSE Routine 01/08/2025 12:29 AM CDT POC GLUCOSE Routine 01/07/2025 7:59 PM CDT POC GLUCOSE Routine 01/07/2025 4:43 PM CDT POC GLUCOSE Routine 01/07/2025 11:56 AM CDT POC GLUCOSE Routine 01/07/2025 8:20 AM CDT HEPATIC FUNCTION PANEL Routine 6:30 AM CDT CBC WITHOUT DIFFERENTIAL Routine 025 6:30 AM CDT BASIC METABOLIC PANEL Routine 01/07/2025 6:30 AM CDT MAGNESIUM LEVEL Routine 01/07/2025 6:30 AM CDT PHOSPHORUS Routine 01/07/2025 6:30 AM CDT POC GLUCOSE Routine 01/06/2025 11:39 PM CDT POC GLUCOSE Routine 01/06/2025 8:23 PM CDT POC GLUCOSE Routine 01/06/2025 5:50 PM CDT POC GLUCOSE Routine 01/06/2025 12:56 PM CDT HEMOGLOBIN AND HEMATOCRIT Routine 01/06/2025 9:21 AM CDT POC GLUCOSE Routine 01/06/2025 8:38 AM CDT TYPE AND SCREEN Routine 01/06/2025 5:55 AM CDT PREPARE RED BLOOD CELLS Routine 01/07/20 25 5:37 AM CDT CBC WITHOUT DIFFERENTIAL Routine 025 4:30 AM CDT BASIC METABOLIC PANEL Routine 01/06/2025 4:30 AM CDT MAGNESIUM LEVEL Routine 01/06/2025 4:30 AM CDT PHOSPHORUS Routine 01/06/2025 4:30 AM CDT POC GLUCOSE Routine 01/06/2025 4:15 AM CDT POC GLUCOSE Routine 01/06/2025 12:05 AM CDT POC GLUCOSE Routine 01/05/2025 8:03 PM CDT POC GLUCOSE Routine 01/05/2025 4:14 PM CDT POC GLUCOSE Routine 01/05/2025 12:22 PM CDT POC GLUCOSE Routine 01/05/2025 8:09 AM CDT POC GLUCOSE Routine 01/05/2025 4:48 AM CDT CBC WITHOUT DIFFERENTIAL Routine 025 4:21 AM CDT BASIC METABOLIC PANEL Routine 01/05/2025 4:21 AM CDT MAGNESIUM LEVEL Routine 01/05/2025 4:21 AM CDT PHOSPHORUS Routine 01/05/2025 4:21 AM CDT POC GLUCOSE Routine 01/04/2025 11:42 PM CDT POC GLUCOSE Routine 01/04/2025 8:28 PM CDT POC GLUCOSE Routine 01/04/2025 4:04 PM CDT POC GLUCOSE Routine 01/04/2025 1:10 PM CDT POC GLUCOSE Routine 01/04/2025 8:18 AM CDT POC GLUCOSE Routine 01/04/2025 3:51 AM CDT C-REACTIVE PROTEIN Routine 01/04/2025 3: 10 AM CDT CBC WITHOUT DIFFERENTIAL Routine 025 3:10 AM CDT BASIC METABOLIC PANEL Routine 01/04/2025 3:10 AM CDT MAGNESIUM LEVEL Routine 01/04/2025 3:10 AM CDT PHOSPHORUS Routine 01/04/2025 3:10 AM CDT POC GLUCOSE Routine 01/03/2025 11:39 PM CDT POC GLUCOSE Routine 01/03/2025 7:50 PM CDT POC GLUCOSE Routine 01/03/2025 3:58 PM CDT POC GLUCOSE Routine 01/03/2025 12:20 PM CDT POC GLUCOSE Routine 01/03/2025 8:35 AM CDT CBC WITHOUT DIFFERENTIAL Routine 025 3:58 AM CDT BASIC METABOLIC PANEL Routine 01/03/2025 3:58 AM CDT MAGNESIUM LEVEL Routine 01/03/2025 3:58 AM CDT PHOSPHORUS Routine 01/03/2025 3:58 AM CDT POC GLUCOSE Routine 01/03/2025 3:52 AM CDT POC GLUCOSE Routine 01/02/2025 11:36 PM CDT POC GLUCOSE Routine 01/02/2025 8:09 PM CDT POC GLUCOSE Routine 01/02/2025 6:04 PM CDT POC GLUCOSE Routine 01/02/2025 12:20 PM CDT POC GLUCOSE Routine 01/02/2025 9:38 AM CDT CBC WITHOUT DIFFERENTIAL Routine 025 4:53 AM CDT BASIC METABOLIC PANEL Routine 01/02/2025 4:53 AM CDT MAGNESIUM LEVEL Routine 01/02/2025 4:53 AM CDT PHOSPHORUS Routine 01/02/2025 4:53 AM CDT POC GLUCOSE Routine 01/02/2025 4:15 AM CDT POC GLUCOSE Routine 01/02/2025 12:33 AM CDT POC GLUCOSE Routine 01/01/2025 8:25 PM CDT POC GLUCOSE Routine 01/01/2025 5:19 PM CDT POC LACTIC ACID Routine 01/01/2025 1:40 PM CDT BLOOD GAS,(INCL. H+H, LYTES, GLUC) Routine 01/01/2025 1:40 PM CDT DC ANES INSERT CATH, ART, PERCUT, SHORTTERM Routine 01/01/2025 12:20 PM CDT POC LACTIC ACID Routine 01/01/2025 11:37 AM CDT BLOOD GAS,(INCL. H+H, LYTES, GLUC) Routine 01/01/2025 11:37 AM CDT PERIPHERAL IV ADULT Routine 01/01/2025 9 :53 AM CDT DC ANES VNPNXR 3 YEARS/> PHYS/QHP SKILL Routine 01/01/2025 9:53 AM CDT DC SPLT AGRFT T/A/L 1ST 100 SQCM/</1% BDY INFT/CHLD 01/01/2025 9:01 AM CDT Malignant neoplasm of mouth (CMS/HCC) DC I&D DEEP ABSC/HMTMA SOFT TISSUE NECK/THORAX 01/01/2025 9:01 AM CDT Malignant neoplasm of mouth (CMS/HCC) POC GLUCOSE Routine 01/01/2025 8:25 AM CDT PREPARE RED BLOOD CELLS Routine 01/02/20 8:18 AM CDT CBC WITHOUT DIFFERENTIAL Routine 025 4:46 AM CDT BASIC METABOLIC PANEL Routine 01/01/2025 4:46 AM CDT MAGNESIUM LEVEL Routine 01/01/2025 4:46 AM CDT PHOSPHORUS Routine 01/01/2025 4:46 AM CDT POC GLUCOSE Routine 01/01/2025 3:55 AM CDT POC GLUCOSE Routine 01/01/2025 12:10 AM CDT POC GLUCOSE Routine 12/31/2024 7:55 PM CDT POC GLUCOSE Routine 12/31/2024 4:18 PM CDT POC GLUCOSE Routine 12/31/2024 12:45 PM CDT EKG 12-LEAD Routine 12/31/2024 6:13 AM CDT CBC WITHOUT DIFFERENTIAL Routine 025 5:41 AM CDT BASIC METABOLIC PANEL Routine 12/31/2024 5:41 AM CDT MAGNESIUM LEVEL Routine 12/31/2024 5:41 AM CDT PHOSPHORUS Routine 12/31/2024 5:41 AM CDT POC GLUCOSE Routine 12/30/2024 11:39 PM CDT POC GLUCOSE Routine 12/30/2024 9:04 PM CDT POC GLUCOSE Routine 12/30/2024 6:08 PM CDT POC GLUCOSE Routine 12/30/2024 3:52 PM CDT TRANSFUSE PACKED RED BLOOD CELLS Routine 12/30/2024 2:59 PM CDT ANAEROBIC/AEROBIC CULTURE W GRAM STAIN Routine 12/30/2024 1:52 PM CDT Malignant neoplasm of mouth (CMS/HCC) ANAEROBIC/AEROBIC CULTURE W GRAM STAIN Routine 12/30/2024 1:51 PM CDT ANAEROBIC/AEROBIC CULTURE W GRAM STAIN Routine 12/30/2024 1:51 PM CDT Malignant neoplasm of mouth (CMS/HCC) MANDIBULAR HARDWARE REMOVAL 12/30/2024 12:45 PM CDT Malignant neoplasm of mouth (CMS/HCC) DC EGD PERCUTANEOUS PLACEMENT GASTROSTOMY TUBE 12/30/2024 12:45 PM CDT Malignant neoplasm of mouth (CMS/HCC) DC I&D DEEP ABSC/HMTMA SOFT TISSUE NECK/THORAX 12/30/2024 12:45 PM CDT Malignant neoplasm of mouth (CMS/HCC) TYPE AND SCREEN Stat 12/30/2024 11:45 AM CDT PREPARE RED BLOOD CELLS Routine 12/31/19 11:37 AM CDT PREPARE RED BLOOD CELLS Stat 12/31/19 11:37 AM CDT POC GLUCOSE Routine 12/30/2024 8:44 AM CDT UNFRACTIONATED HEPARIN ACTIVITY Timed Study 12/30/2024 4:16 AM CDT CBC WITHOUT DIFFERENTIAL Routine 025 4:16 AM CDT BASIC METABOLIC PANEL Routine 12/30/2024 4:16 AM CDT MAGNESIUM LEVEL Routine 12/30/2024 4:16 AM CDT PHOSPHORUS Routine 12/30/2024 4:16 AM CDT POC GLUCOSE Routine 12/30/2024 4:01 AM CDT POC GLUCOSE Routine 12/30/2024 12:19 AM CDT UNFRACTIONATED HEPARIN ACTIVITY Timed Study 12/29/2024 10:39 PM CDT UNFRACTIONATED HEPARIN ACTIVITY Timed Study 12/29/2024 8:20 PM CDT POC GLUCOSE Routine 12/29/2024 8:06 PM CDT POC GLUCOSE Routine 12/29/2024 4:45 PM CDT UNFRACTIONATED HEPARIN ACTIVITY Timed Study 12/29/2024 1:14 PM CDT POC GLUCOSE Routine 12/29/2024 12:24 PM CDT POC GLUCOSE Routine 12/29/2024 8:18 AM CDT POC GLUCOSE Routine 12/29/2024 4:17 AM CDT UNFRACTIONATED HEPARIN ACTIVITY Routine 12/29/2024 3:37 AM CDT CBC WITHOUT DIFFERENTIAL Routine 025 3:37 AM CDT BASIC METABOLIC PANEL Routine 12/29/2024 3:37 AM CDT MAGNESIUM LEVEL Routine 12/29/2024 3:37 AM CDT PHOSPHORUS Routine 12/29/2024 3:37 AM CDT POC GLUCOSE Routine 12/29/2024 12:05 AM CDT POC GLUCOSE Routine 12/28/2024 8:35 PM CDT POC GLUCOSE Routine 12/28/2024 12:16 PM CDT EKG 12-LEAD Routine 12/28/2024 10:33 AM CDT POC GLUCOSE Routine 12/28/2024 9:22 AM CDT POC GLUCOSE Routine 12/28/2024 3:55 AM CDT UNFRACTIONATED HEPARIN ACTIVITY Routine 12/28/2024 2:53 AM CDT CBC WITHOUT DIFFERENTIAL Routine 025 2:53 AM CDT BASIC METABOLIC PANEL Routine 12/28/2024 2:53 AM CDT MAGNESIUM LEVEL Routine 12/28/2024 2:53 AM CDT PHOSPHORUS Routine 12/28/2024 2:53 AM CDT POC GLUCOSE Routine 12/27/2024 11:29 PM CDT UNFRACTIONATED HEPARIN ACTIVITY Timed Study 12/27/2024 9:01 PM CDT POC GLUCOSE Routine 12/27/2024 8:54 PM CDT POC GLUCOSE Routine 12/27/2024 6:23 PM CDT POC GLUCOSE Routine 12/27/2024 3:06 PM CDT UNFRACTIONATED HEPARIN ACTIVITY Timed Study 12/27/2024 3:05 PM CDT POC GLUCOSE Routine 12/27/2024 12:29 PM CDT POC GLUCOSE Routine 12/27/2024 7:43 AM CDT UNFRACTIONATED HEPARIN ACTIVITY Routine 12/27/2024 5:42 AM CDT CBC WITHOUT DIFFERENTIAL Routine 025 5:42 AM CDT BASIC METABOLIC PANEL Routine 12/27/2024 5:42 AM CDT MAGNESIUM LEVEL Routine 12/27/2024 5:42 AM CDT PHOSPHORUS Routine 12/27/2024 5:42 AM CDT POC GLUCOSE Routine 12/27/2024 5:33 AM CDT POC GLUCOSE Routine 12/27/2024 4:18 AM CDT POC GLUCOSE Routine 12/27/2024 12:22 AM CDT POC GLUCOSE Routine 12/26/2024 8:50 PM CDT POC GLUCOSE Routine 12/26/2024 4:07 PM CDT HEMOGLOBIN AND HEMATOCRIT Routine 12/26/2024 3:21 PM CDT POC GLUCOSE Routine 12/26/2024 12:16 PM CDT TRANSFUSE PACKED RED BLOOD CELLS Routine 12/26/2024 9:19 AM CDT PREPARE RED BLOOD CELLS Routine 12/27/19 7:42 AM CDT CBC WITHOUT DIFFERENTIAL Routine 6:08 AM CDT POC GLUCOSE Routine 12/26/2024 5:50 AM CDT UNFRACTIONATED HEPARIN ACTIVITY Routine 12/26/2024 4:56 AM CDT BASIC METABOLIC PANEL Routine 12/26/2024 4:56 AM CDT MAGNESIUM LEVEL Routine 12/26/2024 4:56 AM CDT PHOSPHORUS Routine 12/26/2024 4:56 AM CDT POC GLUCOSE Routine 12/26/2024 12:41 AM CDT XR CHEST PA OR AP 1 VW Stat 9:55 PM CDT POC GLUCOSE Routine 12/25/2024 5:06 PM CDT POC GLUCOSE Routine 12/25/2024 12:31 PM CDT POC GLUCOSE Routine 12/25/2024 7:56 AM CDT TSH Routine 12/25/2024 7:56 AM CDT UNFRACTIONATED HEPARIN ACTIVITY Routine 12/25/2024 5:16 AM CDT CBC WITHOUT DIFFERENTIAL Routine 025 5:16 AM CDT BASIC METABOLIC PANEL Routine 12/25/2024 5:16 AM CDT MAGNESIUM LEVEL Routine 12/25/2024 5:16 AM CDT PHOSPHORUS Routine 12/25/2024 5:16 AM CDT POC GLUCOSE Routine 12/25/2024 12:38 AM CDT POC GLUCOSE Routine 12/24/2024 9:05 PM CDT POC GLUCOSE Routine 12/24/2024 5:37 PM CDT POC GLUCOSE Routine 12/24/2024 1:27 PM CDT POC GLUCOSE Routine 12/24/2024 7:33 AM CDT POC GLUCOSE Routine 12/24/2024 4:26 AM CDT CBC WITHOUT DIFFERENTIAL Routine 025 4:19 AM CDT BASIC METABOLIC PANEL Routine 12/24/2024 4:19 AM CDT MAGNESIUM LEVEL Routine 12/24/2024 4:19 AM CDT PHOSPHORUS Routine 12/24/2024 4:19 AM CDT UNFRACTIONATED HEPARIN ACTIVITY Timed Study 12/24/2024 2:40 AM CDT POC GLUCOSE Routine 12/23/2024 11:59 PM CDT UNFRACTIONATED HEPARIN ACTIVITY Timed Study 12/23/2024 8:19 PM CDT POC GLUCOSE Routine 12/23/2024 7:42 PM CDT POC GLUCOSE Routine 12/23/2024 3:35 PM CDT HEMOGLOBIN AND HEMATOCRIT Routine 12/23/2024 1:01 PM CDT UNFRACTIONATED HEPARIN ACTIVITY Timed Study 12/23/2024 1:01 PM CDT POC GLUCOSE Routine 12/23/2024 11:54 AM CDT TRANSFUSE PACKED RED BLOOD CELLS Stat 12/23/2024 9:56 AM CDT POC GLUCOSE Routine 12/23/2024 7:55 AM CDT TYPE AND SCREEN Routine 12/23/2024 7:41 AM CDT PREPARE RED BLOOD CELLS Stat 12/24/19 6:31 AM CDT UNFRACTIONATED HEPARIN ACTIVITY Timed Study 12/23/2024 4:19 AM CDT CBC WITHOUT DIFFERENTIAL Routine 025 4:19 AM CDT BASIC METABOLIC PANEL Routine 12/23/2024 4:19 AM CDT MAGNESIUM LEVEL Routine 12/23/2024 4:19 AM CDT PHOSPHORUS Routine 12/23/2024 4:19 AM CDT POC GLUCOSE Routine 12/23/2024 3:59 AM CDT POC GLUCOSE Routine 12/22/2024 11:37 PM CDT POC GLUCOSE Routine 12/22/2024 9:09 PM CDT HEMOGLOBIN AND HEMATOCRIT Routine 12/22/2024 5:24 PM CDT POC GLUCOSE Routine 12/22/2024 4:29 PM CDT POC GLUCOSE Routine 12/22/2024 1:07 PM CDT POC GLUCOSE Routine 12/22/2024 8:00 AM CDT UNFRACTIONATED HEPARIN ACTIVITY Routine 12/22/2024 4:54 AM CDT CBC WITHOUT DIFFERENTIAL Routine 025 4:54 AM CDT BASIC METABOLIC PANEL Routine 12/22/2024 4:54 AM CDT MAGNESIUM LEVEL Routine 12/22/2024 4:54 AM CDT PHOSPHORUS Routine 12/22/2024 4:54 AM CDT POC GLUCOSE Routine 12/22/2024 4:02 AM CDT POC GLUCOSE Routine 12/21/2024 11:29 PM CDT POC GLUCOSE Routine 12/21/2024 8:05 PM CDT UNFRACTIONATED HEPARIN ACTIVITY Timed Study 12/21/2024 6:42 PM CDT XR ABDOMEN FOR FEEDING TUBE 1 VW Stat 12/21/2024 4:34 PM CDT HEMOGLOBIN AND HEMATOCRIT Routine 12/21/2024 4:30 PM CDT UNFRACTIONATED HEPARIN ACTIVITY Timed Study 12/21/2024 12:18 PM CDT POC GLUCOSE Routine 12/21/2024 11:48 AM CDT POC GLUCOSE Routine 12/21/2024 5:06 AM CDT DIFFERENTIAL, MANUAL Routine 12/21/2024 5:02 AM CDT UNFRACTIONATED HEPARIN ACTIVITY Timed Study 12/21/2024 5:02 AM CDT CBC WITH DIFFERENTIAL Routine 12/21/2024 5:02 AM CDT COMPREHENSIVE METABOLIC PANEL Routine 12/21/2024 5:02 AM CDT PHOSPHORUS Routine 12/21/2024 5:02 AM CDT MAGNESIUM LEVEL Routine 12/21/2024 5:02 AM CDT POC GLUCOSE Routine 12/21/2024 3:34 AM CDT POC GLUCOSE Routine 12/20/2024 11:20 PM CDT POC GLUCOSE Routine 12/20/2024 8:08 PM CDT HEMOGLOBIN AND HEMATOCRIT Routine 12/20/2024 4:13 PM CDT UNFRACTIONATED HEPARIN ACTIVITY Timed Study 12/20/2024 4:12 PM CDT POC GLUCOSE Routine 12/20/2024 3:45 PM CDT POC GLUCOSE Routine 12/20/2024 12:06 PM CDT UNFRACTIONATED HEPARIN ACTIVITY Timed Study 12/20/2024 10:14 AM CDT HEMOGLOBIN AND HEMATOCRIT Routine 12/20/2024 8:20 AM CDT POC GLUCOSE Routine 12/20/2024 7:41 AM CDT POC GLUCOSE Routine 12/20/2024 4:17 AM CDT DIFFERENTIAL, MANUAL Routine 12/20/2024 4:15 AM CDT CBC WITH DIFFERENTIAL Routine 12/20/2024 4:15 AM CDT COMPREHENSIVE METABOLIC PANEL Routine 12/20/2024 4:15 AM CDT PHOSPHORUS Routine 12/20/2024 4:15 AM CDT MAGNESIUM LEVEL Routine 12/20/2024 4:15 AM CDT POC GLUCOSE Routine 12/20/2024 3:53 AM CDT UNFRACTIONATED HEPARIN ACTIVITY Timed Study 12/20/2024 2:59 AM CDT HEMOGLOBIN AND HEMATOCRIT Routine 12/20/2024 12:45 AM CDT POC GLUCOSE Routine 12/19/2024 11:56 PM CDT TRANSFUSE PACKED RED BLOOD CELLS Routine 12/19/2024 10:18 PM CDT PREPARE RED BLOOD CELLS Routine 12/20/19 9:45 PM CDT POC GLUCOSE Routine 12/19/2024 9:06 PM CDT DIFFERENTIAL, MANUAL Stat 12/19/2024 9:01 PM CDT LACTIC ACID Stat 12/19/2024 9:01 PM CDT CBC WITH DIFFERENTIAL Stat 12/19/2024 9:01 PM CDT UNFRACTIONATED HEPARIN ACTIVITY Timed Study 12/19/2024 9:01 PM CDT POC GLUCOSE Routine 12/19/2024 7:51 PM CDT HEMOGLOBIN AND HEMATOCRIT Routine 12/19/2024 4:24 PM CDT POC GLUCOSE Routine 12/19/2024 3:45 PM CDT UNFRACTIONATED HEPARIN ACTIVITY Timed Study 12/19/2024 1:47 PM CDT RESPIRATORY THERAPY COMMUNICATION Routine 12/19/2024 11:56 AM CDT US DOPPLER VENOUS ARM RIGHT Stat 12/19/2024 10:12 AM CDT US DUPLEX ARTERIAL ARM RIGHT Stat 12/19/2024 10:11 AM CDT CK Routine 12/19/2024 9:12 AM CDT POC GLUCOSE Routine 12/19/2024 7:44 AM CDT DIFFERENTIAL, MANUAL Stat 12/19/2024 6:43 AM CDT CBC WITH DIFFERENTIAL Stat 12/19/2024 6:43 AM CDT UNFRACTIONATED HEPARIN ACTIVITY Timed Study 12/19/2024 5:02 AM CDT POC GLUCOSE Routine 12/19/2024 5:01 AM CDT POC GLUCOSE Routine 12/19/2024 3:50 AM CDT COMPREHENSIVE METABOLIC PANEL Routine 12/19/2024 1:56 AM CDT PHOSPHORUS Routine 12/19/2024 1:56 AM CDT MAGNESIUM LEVEL Routine 12/19/2024 1:56 AM CDT EKG 12-LEAD Stat 12/19/2024 1:12 AM CDT POC GLUCOSE Routine 12/18/2024 11:27 PM CDT HEMOGLOBIN AND HEMATOCRIT Routine 12/18/2024 11:04 PM CDT PROTIME-INR Routine 12/18/2024 11:04 PM CDT PTT Routine 12/18/2024 11:04 PM CDT UNFRACTIONATED HEPARIN ACTIVITY Timed Study 12/18/2024 11:04 PM CDT HEMOGLOBIN AND HEMATOCRIT Routine 12/18/2024 9:21 PM CDT PHOSPHORUS Stat 12/18/2024 9:21 PM CDT MAGNESIUM LEVEL Routine 12/18/2024 9:21 PM CDT BASIC METABOLIC PANEL Routine 12/18/2024 9:21 PM CDT POC GLUCOSE Routine 12/18/2024 7:55 PM CDT TELEMETRY REPORT 12/18/2024 5:23 PM CDT DIFFERENTIAL, MANUAL Routine 12/18/2024 5:09 PM CDT PHOSPHORUS Routine 12/18/2024 5:09 PM CDT MAGNESIUM LEVEL Routine 12/18/2024 5:09 PM CDT COMPREHENSIVE METABOLIC PANEL Routine 12/18/2024 5:09 PM CDT CBC WITH DIFFERENTIAL Routine 12/18/2024 5:09 PM CDT POC GLUCOSE Routine 12/18/2024 4:41 PM CDT ANAEROBIC/AEROBIC CULTURE W GRAM STAIN Routine 12/18/2024 4:05 PM CDT POC LACTIC ACID Routine 12/18/2024 3:19 PM CDT OXIMETRY Routine 12/18/2024 3:19 PM CDT METHEMOGLOBIN QUANTITATIVE Routine 12/18/2024 3:19 PM CDT CARBOXYHEMOGLOBIN Routine 12/18/2024 3:1 9 PM CDT BLOOD GAS,(INCL. H+H, LYTES, GLUC) Routine 12/18/2024 3:19 PM CDT POC LACTIC ACID Routine 12/18/2024 1:46 PM CDT BLOOD GAS,(INCL. H+H, LYTES, GLUC) Routine 12/18/2024 1:46 PM CDT DC ANES INSERT CATH, ART, PERCUT, SHORTTERM Routine 12/18/2024 1:20 PM CDT PREPARE RED BLOOD CELLS Routine 12/19/19 1:15 PM CDT PREPARE RED BLOOD CELLS Stat 12/19/19 1:15 PM CDT PECTORALIS PEDICLE FLAP 12/19/19 12:47 PM CDT NECK EXPLORATION 12/18/2024 12:4 7 PM CDT POC LACTIC ACID Routine 12/18/2024 12:45 PM CDT BLOOD GAS,(INCL. H+H, LYTES, GLUC) Routine 12/18/2024 12:45 PM CDT TYPE AND SCREEN Routine 12/18/2024 12:34 PM CDT PERIPHERAL IV ADULT Routine 12/18/2024 1 2:20 PM CDT DC ANES VNPNXR 3 YEARS/> PHYS/QHP SKILL Routine 12/18/2024 12:20 PM CDT POC GLUCOSE Routine 12/18/2024 8:02 AM CDT XR CHEST PA OR AP 1 VW Stat 6:06 AM CDT DIFFERENTIAL, MANUAL Routine 12/18/2024 5:11 AM CDT UNFRACTIONATED HEPARIN ACTIVITY Timed Study 12/18/2024 5:11 AM CDT COMPREHENSIVE METABOLIC PANEL Routine 12/18/2024 5:11 AM CDT PHOSPHORUS Routine 12/18/2024 5:11 AM CDT MAGNESIUM LEVEL Routine 12/18/2024 5:11 AM CDT CBC WITH DIFFERENTIAL Routine 12/18/2024 5:11 AM CDT POC GLUCOSE Routine 12/18/2024 3:50 AM CDT UNFRACTIONATED HEPARIN ACTIVITY Timed Study 12/18/2024 12:24 AM CDT POC GLUCOSE Routine 12/17/2024 11:40 PM CDT POC GLUCOSE Routine 12/17/2024 7:49 PM CDT RESPIRATORY CULTURE WITH GRAM STAIN Routine 12/17/2024 6:34 PM CDT PTT Routine 12/17/2024 6:32 PM CDT UNFRACTIONATED HEPARIN ACTIVITY Timed Study 12/17/2024 6:32 PM CDT POC GLUCOSE Routine 12/17/2024 4:06 PM CDT POC GLUCOSE Routine 12/17/2024 11:58 AM CDT POC GLUCOSE Routine 12/17/2024 8:01 AM CDT RESPIRATORY THERAPY COMMUNICATION Routine 12/17/2024 7:20 AM CDT DIFFERENTIAL, MANUAL Routine 12/17/2024 4:58 AM CDT UNFRACTIONATED HEPARIN ACTIVITY Routine 12/17/2024 4:58 AM CDT COMPREHENSIVE METABOLIC PANEL Routine 12/17/2024 4:58 AM CDT PHOSPHORUS Routine 12/17/2024 4:58 AM CDT MAGNESIUM LEVEL Routine 12/17/2024 4:58 AM CDT CBC WITH DIFFERENTIAL Routine 12/17/2024 4:58 AM CDT POC GLUCOSE Routine 12/17/2024 3:35 AM CDT POC GLUCOSE Routine 12/16/2024 11:42 PM CDT POC GLUCOSE Routine 12/16/2024 8:13 PM CDT POC GLUCOSE Routine 12/16/2024 3:38 PM CDT POC GLUCOSE Routine 12/16/2024 11:50 AM CDT POC GLUCOSE Routine 12/16/2024 9:01 AM CDT DIFFERENTIAL, MANUAL Routine 12/16/2024 5:32 AM CDT UNFRACTIONATED HEPARIN ACTIVITY Routine 12/16/2024 5:32 AM CDT COMPREHENSIVE METABOLIC PANEL Routine 12/16/2024 5:32 AM CDT PHOSPHORUS Routine 12/16/2024 5:32 AM CDT MAGNESIUM LEVEL Routine 12/16/2024 5:32 AM CDT CBC WITH DIFFERENTIAL Routine 12/16/2024 5:32 AM CDT POC GLUCOSE Routine 12/16/2024 5:23 AM CDT POC GLUCOSE Routine 12/16/2024 3:37 AM CDT MAGNESIUM LEVEL Stat 12/16/2024 12:15 AM CDT BASIC METABOLIC PANEL Stat 12/16/2024 12:15 AM CDT POC GLUCOSE Routine 12/16/2024 12:14 AM CDT POC GLUCOSE Routine 12/15/2024 11:20 PM CDT POC GLUCOSE Routine 12/15/2024 8:17 PM CDT POC GLUCOSE Routine 12/15/2024 5:10 PM CDT RESPIRATORY THERAPY COMMUNICATION Routine 12/15/2024 4:33 PM CDT POC GLUCOSE Routine 12/15/2024 1:11 PM CDT UNFRACTIONATED HEPARIN ACTIVITY Timed Study 12/15/2024 1:02 PM CDT HEMOGLOBIN AND HEMATOCRIT Routine 12/15/2024 10:04 AM CDT POC GLUCOSE Routine 12/15/2024 9:54 AM CDT UNFRACTIONATED HEPARIN ACTIVITY Timed Study 12/15/2024 5:54 AM CDT DIFFERENTIAL, MANUAL Routine 12/15/2024 5:52 AM CDT PHOSPHORUS Routine 12/15/2024 5:52 AM CDT CBC WITH DIFFERENTIAL Routine 12/15/2024 5:52 AM CDT POC GLUCOSE Routine 12/15/2024 3:34 AM CDT MAGNESIUM LEVEL Stat 12/15/2024 12:50 AM CDT COMPREHENSIVE METABOLIC PANEL Stat 12/15/2024 12:50 AM CDT HEMOGLOBIN AND HEMATOCRIT Routine 12/14/2024 11:34 PM CDT UNFRACTIONATED HEPARIN ACTIVITY Timed Study 12/14/2024 11:34 PM CDT POC GLUCOSE Routine 12/14/2024 11:33 PM CDT POC GLUCOSE Routine 12/14/2024 9:08 PM CDT POC GLUCOSE Routine 12/14/2024 7:52 PM CDT POC GLUCOSE Routine 12/14/2024 4:13 PM CDT UNFRACTIONATED HEPARIN ACTIVITY Timed Study 12/14/2024 4:10 PM CDT HEMOGLOBIN AND HEMATOCRIT Routine 12/14/2024 4:10 PM CDT IR VENOUS ACCESS Routine 12/14/2024 2:52 PM CDT XR CHEST PA OR AP 1 VW Routine 1:50 PM CDT POC GLUCOSE Routine 12/14/2024 12:06 PM CDT DIGOXIN LEVEL Routine 12/14/2024 10:55 AM CDT UNFRACTIONATED HEPARIN ACTIVITY Routine 12/14/2024 8:30 AM CDT HEMOGLOBIN AND HEMATOCRIT Routine 12/14/2024 8:30 AM CDT POC GLUCOSE Routine 12/14/2024 8:28 AM CDT DIFFERENTIAL, MANUAL Routine 12/14/2024 4:28 AM CDT PHOSPHORUS Routine 12/14/2024 4:28 AM CDT MAGNESIUM LEVEL Routine 12/14/2024 4:28 AM CDT BASIC METABOLIC PANEL Routine 12/14/2024 4:28 AM CDT CBC WITH DIFFERENTIAL Routine 12/14/2024 4:28 AM CDT POC GLUCOSE Routine 12/14/2024 3:55 AM CDT UNFRACTIONATED HEPARIN ACTIVITY Routine 12/14/2024 2:19 AM CDT HEMOGLOBIN AND HEMATOCRIT Routine 12/14/2024 12:18 AM CDT POC GLUCOSE Routine 12/14/2024 12:07 AM CDT DIFFERENTIAL, MANUAL Timed Study 12/13/2024 7:50 PM CDT CBC WITH DIFFERENTIAL Timed Study 12/13/2024 7:50 PM CDT BLOOD GAS VENOUS Stat 12/13/2024 7:20 PM CDT UNFRACTIONATED HEPARIN ACTIVITY Timed Study 12/13/2024 7:20 PM CDT POC GLUCOSE Routine 12/13/2024 7:13 PM CDT TRANSFUSE PACKED RED BLOOD CELLS Routine 12/13/2024 6:31 PM CDT TRANSFUSE PACKED RED BLOOD CELLS Routine 12/13/2024 5:50 PM CDT PREPARE RED BLOOD CELLS Routine 12/14/19 5:33 PM CDT PREPARE RED BLOOD CELLS Routine 12/14/19 5:33 PM CDT POC LACTIC ACID Routine 12/13/2024 4:22 PM CDT BLOOD GAS,(INCL. H+H, LYTES, GLUC) Routine 12/13/2024 4:22 PM CDT TRANSFUSE PACKED RED BLOOD CELLS Routine 12/13/2024 3:10 PM CDT TRANSFUSE FROZEN PLASMA Routine 12/14/19 2:15 PM CDT TRANSFUSE FROZEN PLASMA Routine 12/14/19 1:45 PM CDT TRANSFUSE PACKED RED BLOOD CELLS Routine 12/13/2024 1:30 PM CDT PREPARE FRESH FROZEN PLASMA Routine 12/13/2024 1:09 PM CDT PREPARE RED BLOOD CELLS Routine 12/14/19 1:09 PM CDT PREPARE FRESH FROZEN PLASMA Routine 12/13/2024 1:09 PM CDT PREPARE RED BLOOD CELLS Routine 12/14/19 1:09 PM CDT POC LACTIC ACID Routine 12/13/2024 1:01 PM CDT BLOOD GAS,(INCL. H+H, LYTES, GLUC) Routine 12/13/2024 1:01 PM CDT DC OSTEOTOMY MANDIBLE SEGMENTAL 12/13/2024 12:40 PM CDT VESTIBULOPLASTY 12/13/2024 12:40 PM CDT DC FREE MUSCLE/MYOCUTANEOUS FLAP W/MVASC ANAST 12/13/2024 12:40 PM CDT NECK DISSECTION 12/13/2024 12:40 PM CDT POC GLUCOSE Routine 12/13/2024 11:51 AM CDT UNFRACTIONATED HEPARIN ACTIVITY Routine 12/13/2024 8:40 AM CDT HEMOGLOBIN AND HEMATOCRIT Routine 12/13/2024 8:40 AM CDT POC GLUCOSE Routine 12/13/2024 7:58 AM CDT DIFFERENTIAL, MANUAL Routine 12/13/2024 3:52 AM CDT PHOSPHORUS Routine 12/13/2024 3:52 AM CDT MAGNESIUM LEVEL Routine 12/13/2024 3:52 AM CDT BASIC METABOLIC PANEL Routine 12/13/2024 3:52 AM CDT CBC WITH DIFFERENTIAL Routine 12/13/2024 3:52 AM CDT POC GLUCOSE Routine 12/13/2024 3:29 AM CDT UNFRACTIONATED HEPARIN ACTIVITY Routine 12/13/2024 1:26 AM CDT POC GLUCOSE Routine 12/12/2024 11:10 PM CDT HEMOGLOBIN AND HEMATOCRIT Routine 12/12/2024 10:51 PM CDT POC GLUCOSE Routine 12/12/2024 7:54 PM CDT UNFRACTIONATED HEPARIN ACTIVITY Timed Study 12/12/2024 6:43 PM CDT POC GLUCOSE Routine 12/12/2024 4:09 PM CDT HEMOGLOBIN AND HEMATOCRIT Routine 12/12/2024 4:08 PM CDT TRANSFUSE PACKED RED BLOOD CELLS Routine 12/12/2024 2:01 PM CDT BASIC METABOLIC PANEL Routine 12/12/2024 1:57 PM CDT PREPARE RED BLOOD CELLS Routine 12/13/19 25 1:39 PM CDT PTT Routine 12/12/2024 12:50 PM CDT UNFRACTIONATED HEPARIN ACTIVITY Timed Study 12/12/2024 12:50 PM CDT CBC WITHOUT DIFFERENTIAL Routine 025 12:50 PM CDT POC GLUCOSE Routine 12/12/2024 11:12 AM CDT TRANSFUSE PACKED RED BLOOD CELLS Routine 12/12/2024 7:54 AM CDT PREPARE RED BLOOD CELLS Routine 12/13/19 25 7:33 AM CDT PREPARE RED BLOOD CELLS Stat 12/13/19 7:33 AM CDT TYPE AND SCREEN Stat 12/12/2024 4:34 AM CDT DIFFERENTIAL, MANUAL Routine 12/12/2024 4:34 AM CDT PHOSPHORUS Routine 12/12/2024 4:34 AM CDT MAGNESIUM LEVEL Routine 12/12/2024 4:34 AM CDT BASIC METABOLIC PANEL Routine 12/12/2024 4:34 AM CDT CBC WITH DIFFERENTIAL Routine 12/12/2024 4:34 AM CDT VESTIBULOPLASTY 12/12/2024 4:15 AM CDT DC FREE MUSCLE/MYOCUTANEOUS FLAP W/MVASC ANAST 12/12/2024 4:15 AM CDT NECK DISSECTION 12/12/2024 4:15 AM CDT POC GLUCOSE Routine 12/12/2024 3:20 AM CDT POC GLUCOSE Routine 12/11/2024 11:37 PM CDT POC GLUCOSE Routine 12/11/2024 7:44 PM CDT POC GLUCOSE Routine 12/11/2024 4:07 PM CDT RESPIRATORY THERAPY COMMUNICATION Routine 12/11/2024 2:34 PM CDT POC GLUCOSE Routine 12/11/2024 12:08 PM CDT POC GLUCOSE Routine 12/11/2024 8:13 AM CDT MAGNESIUM LEVEL Routine 12/11/2024 6:35 AM CDT HEPATIC FUNCTION PANEL Routine 6:35 AM CDT BASIC METABOLIC PANEL Routine 12/11/2024 6:35 AM CDT POC GLUCOSE Routine 12/11/2024 3:43 AM CDT DIFFERENTIAL, MANUAL Stat 12/11/2024 1:27 AM CDT CBC WITH DIFFERENTIAL Stat 12/11/2024 1:27 AM CDT POC GLUCOSE Routine 12/10/2024 11:31 PM CDT POC GLUCOSE Routine 12/10/2024 8:19 PM CDT POC GLUCOSE Routine 12/10/2024 4:01 PM CDT POC GLUCOSE Routine 12/10/2024 12:12 PM CDT POC GLUCOSE Routine 12/10/2024 8:01 AM CDT POC GLUCOSE Routine 12/10/2024 4:09 AM CDT DIFFERENTIAL, MANUAL Routine 12/10/2024 4:08 AM CDT BASIC METABOLIC PANEL Routine 12/10/2024 4:08 AM CDT CBC WITH DIFFERENTIAL Routine 12/10/2024 4:08 AM CDT POC GLUCOSE Routine 12/10/2024 12:09 AM CDT POC GLUCOSE Routine 12/09/2024 9:42 PM CDT DIFFERENTIAL, MANUAL Routine 12/09/2024 8:47 PM CDT BASIC METABOLIC PANEL Routine 12/09/2024 8:47 PM CDT CBC WITH DIFFERENTIAL Routine 12/09/2024 8:47 PM CDT OT EVAL AND TREAT Routine 12/09/2024 8:3 9 PM CDT POC GLUCOSE Routine 12/09/2024 8:07 PM CDT XR ABDOMEN FOR FEEDING TUBE 1 VW Stat 12/09/2024 7:43 PM CDT POC GLUCOSE Routine 12/09/2024 5:14 PM CDT POC LACTIC ACID Routine 12/09/2024 3:28 PM CDT BLOOD GAS,(INCL. H+H, LYTES, GLUC) Routine 12/09/2024 3:28 PM CDT POC LACTIC ACID Routine 12/09/2024 2:20 PM CDT BLOOD GAS,(INCL. H+H, LYTES, GLUC) Routine 12/09/2024 2:20 PM CDT POC LACTIC ACID Routine 12/09/2024 1:14 PM CDT BLOOD GAS,(INCL. H+H, LYTES, GLUC) Routine 12/09/2024 1:14 PM CDT POC LACTIC ACID Routine 12/09/2024 12:19 PM CDT BLOOD GAS,(INCL. H+H, LYTES, GLUC) Routine 12/09/2024 12:19 PM CDT BASIC METABOLIC PANEL Stat 12/09/2024 11:26 AM CDT POC LACTIC ACID Routine 12/09/2024 11:06 AM CDT BLOOD GAS,(INCL. H+H, LYTES, GLUC) Routine 12/09/2024 11:06 AM CDT POC LACTIC ACID Routine 12/09/2024 10:21 AM CDT BLOOD GAS,(INCL. H+H, LYTES, GLUC) Routine 12/09/2024 10:21 AM CDT POC LACTIC ACID Routine 12/09/2024 9:07 AM CDT BLOOD GAS,(INCL. H+H, LYTES, GLUC) Routine 12/09/2024 9:07 AM CDT DC ANES INSERT CATH, ART, PERCUT, SHORTTERM Routine 12/09/2024 8:46 AM CDT PATHOLOGY Pathology 12/09/2024 8:25 AM CDT Malignant neoplasm of lower gum (CMS/HCC) DC ANES INSERT ENDOTRACHEAL AIRWAY Routine 12/09/2024 7:41 AM CDT DC OSTEOTOMY MANDIBLE SEGMENTAL 12/09/2024 7:15 AM CDT Malignant neoplasm of lower gum (CMS/HCC) DC RCNSTJ MNDBL XTRORAL W/TRANSOSTEAL BONE PLATE 12/09/2024 7:15 AM CDT Malignant neoplasm of lower gum (CMS/HCC) DC SPLT AGRFT T/A/L 1ST 100 SQCM/</1% BDY INFT/CHLD 12/09/2024 7:15 AM CDT Malignant neoplasm of lower gum (CMS/HCC) DC FREE SKIN FLAP W/MICROVASCULAR ANASTOMOSIS 12/09/2024 7:15 AM CDT Malignant neoplasm of lower gum (CMS/HCC) DC TRACHEOSTOMY PLANNED SEPARATE PROCEDURE 12/09/2024 7:15 AM CDT Malignant neoplasm of lower gum (CMS/HCC) DC GLSSC COMPOSIT W/RESCJ FLOOR & MANDIBULAR RESCJ 12/09/2024 7:15 AM CDT Malignant neoplasm of lower gum (CMS/HCC) DC CERVICAL LYMPHADEC MODIFIED RADICAL NECK DSJ 12/09/2024 7:15 AM CDT Malignant neoplasm of lower gum (CMS/HCC) POC GLUCOSE Routine 12/09/2024 6:08 AM CDT TYPE AND SCREEN Routine 11/30/2024 2:44 PM CDT US LIVER SPLEEN Routine 11/28/2024 9:13 AM CDT Pancytopenia (CMS/HCC) HEMOGLOBIN A1C Routine 11/10/2024 12:30 PM CDT from Last 3 Months or Most Recently Relevant to Health Maintenance Results * EMPLOYMENT AND CLAIMS AIDE CLINICAL SWALLOW EVALUATION (02/02/2025 11:08 AM CDT) Narrative Lakshmi Thomson SLP - 02/02/2025 11:08 AM CDT Lakshmi Thomson SLP 02/02/2025 1:50 PM (No note.) Evan Johnston MD EMPLOYMENT AND CLAIMS AIDE ORDERABLES Final Re sult * TELEMETRY REPORT (01/20/2025 12:30 PM CDT) Only the most recent of2 resultswithin the time period is included. us Provider Scanning ECG ORDERABLES Final Result * (ABNORMAL) POC GLUCOSE (01/19/2025 12:26 PM CDT) Only the most recent of243 resultswithin the time period is included. Pathologist [facility] GLUCOSE POC 210(H) 74 - 99 mg/dL 01/19/2025 12:26 PM CDT [facility] SPECIMEN SOURCE, GLUCOSE POC Whole Blood 01/19/2025 12:26 PM CDT [facility] Blood, whole 01/19/2025 12:2 6 PM CDT 01/19/2025 1:05 PM CDT Evan Johnston MD POINT OF CARE TESTING Fi nal Result [facility] CLIA# [id number] [address] [place] [id number] * (ABNORMAL) CBC WITHOUT DIFFERENTIAL (01/19/2025 6:51 AM CDT) Only the most recent of30 resultswithin the time period is included. WBC 2.3(L) 4.0 - 9.8 K/uL 01/19/2025 7:17 AM [facility] - [facility] RBC 3.37(L) 4.50 - 5.40 M/uL 01/19/2025 7:17 AM [facility] - . [facility] HEMOGLOBIN 7.9(L) 13.6 - 16.5 g/dL 01/19/2025 7:17 AM [facility] - [facility] HEMATOCRIT 27.1(L) 40.0 - 48.0 % 01/19/2025 7:17 AM T [facility] - [facility] MCV 80.4(L) 82.0 - 99.0 fL 01/19/2025 7:17 AM T [facility] - . [facility] MCH 23.4(L) 27.2 - 32.6 pg 01/19/2025 7:17 AM [facility] - [facility] MCHC 29.2(L) 31.5 - 35.5 g/dL 01/19/2025 7:17 AM T [facility] - [facility] PLATELETS 75(L) 140 - 350 K/uL 01/19/2025 7:17 AM T [facility] - [facility] Comment:Persistent abnormal result. MPV 11.4 9.3 - 12.4 fL 01/19/2025 7:17 AM [facility] [employer] [facility] - [facility] RDW 16.8(H) 11.5 - 14.5 % 01/19/2025 7:17 AM [facility] RDW-STDEV 48.5 37.1 - 48.7 fL 01/19/2025 7:17 AM [facility] - [facility] Blood Venipuncture / Unknown 01/19/2025 6:51 AM CDT 01/19/2025 6:58 AM CDT Niitn LOZA HEMATOLOGY ORDERABLES Final Result [facility] [employer] [facility] CLIA# [id number] [address] [facility] [place] [id number] * C-REACTIVE PROTEIN (01/19/2025 6:51 AM CDT) Only the most recent of3 resultswithin the time period is included. CRP <3.0 <5.0 mg/L 01/19/2025 12:50 PM [facility] Blood Venipuncture / Unknown 01/19/2025 6:51 AM CDT 01/19/2025 6:58 AM CDT Jose Edwards MD CHEMISTRY ORDERABLES Final Resul t [facility] [employer] SERVICES [facility]# [id number] [address] [facility] [place] [id number] * (ABNORMAL) BASIC METABOLIC PANEL (01/19/2025 6:51 AM CDT) Only the most recent of39 resultswithin the time period is included. Pathologist [facility] SODIUM 138 136 - 145 mmol/L 01/19/2025 7:43 AM [facility] LABORATORY SERVICES [facility] POTASSIUM 4.2 3.5 - 5.0 mmol/L 01/19/2025 7:43 AM [facility] LABORATORY SERVICES [facility] CHLORIDE 102 98 - 107 mmol/L 01/19/2025 7:43 AM [facility] - . [facility] CO2 26 22 - 29 mmol/L 01/19/2025 7:43 AM [facility] CALCIUM 8.3(L) 8.6 - 10.2 mg/dL 01/19/2025 7:43 AM [facility] LABORATORY SERVICES [facility] BUN 16 6 - 20 mg/dL 01/19/2025 7:43 AM [facility] LABORATORY SERVICES [facility]. [facility] CREATININE 0.42(L) 0.67 - 1.17 mg/dL 01/19/2025 7:43 AM [facility] - . [facility] GLUCOSE 133(H) 74 - 99 mg/dL 01/19/2025 7:43 AM [facility] [employer] LABORATORY SERVICES - . [facility] GFR >60 >=60 mL/min/1.7 3 sq meter 01/19/2025 7:43 AM CDT [facility] [employer] [facility] Comment:eGFR calculated with 2020 CKD-EPI equation. Vegetarian diet, extremely high or low muscle mass, and may affect results. Cystatin C with Glomerular Filtration Rate is a suitable alternative for these patients. ANION GAP 10 8 - 16 mmol/L 01/19/2025 7:43 AM CDT [facility] Blood Venipuncture / Unknown 01/19/2025 6:51 AM CDT 01/19/2025 6:58 AM CDT Nitin Martinez PA CHEMISTRY ORDERABLES Final R esult Performing Organization Address City/[facility]/ZIP Co de Phone Number [facility] CLIA# [id number] [address] [place] [address] * MAGNESIUM LEVEL (01/18/2025 4:26 AM CDT) Only the most recent of39 resultswithin the time period is included. MAGNESIUM 1.8 1.6 - 2.6 mg/dL 01/18/2025 10:22 AM CDT [facility] [employer] [facility] Blood Venipuncture / Unknown 01/18/2025 4:26 AM CDT 01/18/2025 4:33 AM CDT Elise Mcdowell NP CHEMISTRY ORDERABLES Final Result Performing Organization Address City/[facility]/ZIP Co de Phone Number [facility] CLIA# [id number] [address] [place] [address] * (ABNORMAL) BRAIN NATRIURETIC PEPTIDE, BNP OR PROBNP (01/16/2025 3:06 AM CDT) PROBNP, N TERMINAL 239(H) <124 pg/mL 01/16/2025 4:08 AM CDT [facility] [employer] [facility] Comment: INTERPRETIVE COMMENT based on diagnosis: Diagnostic NT pro-BNP cutoffs for Heart Failure in the absence of renal failure is suggested for the following ranges <75 years: <125 pg/mL >=75 years: <450 pg/mL Exclusionary rule out cut-point for Acute Decompensated Heart Failure(ADHF) All ages: <300 pg/mL Diagnostic NT pro-BNP cutoffs for Acute Decompensated Heart Failure(ADHF) in the absence of renal failure is suggested for the following ages <50 years: > 450 pg/mL 50-75 years: > 900 pg/mL >75 years: >1800 pg/mL Blood Venipuncture / Unknown 01/16/2025 3:06 AM CDT 01/16/2025 3:23 AM CDT Elise Mcdowell FIELD SALES TRAINER CHEMISTRY ORDERABLES Final Result Performing Organization Address [facility] de Phone Number [facility] CLIA# [id number] [address] [place] [id number] * PHOSPHORUS (01/14/2025 3:16 AM CDT) Only the most recent of36 resultswithin the time period is included. [facility] Signature PHOSPHORUS 3.0 2.5 - 4.5 mg/dL 01/14/2025 4:00 AM CDT [facility] Blood Venipuncture / Unknown 01/14/2025 3:16 AM CDT 01/14/2025 3:20 AM CDT Nitin Martinez PA CHEMISTRY ORDERABLES Final R esult Performing Organization Address [facility] Co de Phone Number [id number] [address] [place] [id number] * US VENOUS DOPPLER LEG BILATERAL (01/11/2025 5:29 PM CDT) Anatomical Region Laterality Modality Lower Extremity Ultrasound 01/11/2025 4:47 PM CDT Narrative 01/12/2025 5:48 AM CDT [address] [address] [email or web address] [email or web address] Exam Complete Lower Extremity Duplex Patient: Chase Lainez Study ID: [id number] Gender: M : 1970 Age: 54 Race: [facility] Height Study Date: 01/11/2025 Weight: Access. #: [id number] *Referring Physician:Fernanda Zimmerman Jeanette *Ordering Physician:Fernanda Zimmerman *Delivery Driver Assistant:Roxy Anderson History: Edema of both lower extremities. PMH: No prior study is available for comparison. Study data: Study status: Routine. Complete lower extremity venous duplex evaluation. Doppler flow study including spectral analysis, color and becerra scale imaging. Birthdate: Patient birthdate: 1970. Age: Patient is 54year(s) old. Sex: gender: male. Study date: Study date: 01/11/2025. Study time: 04:47 PM. Location: Vascular laboratory. Patient status: Inpatient. Impressions Study data: No prior study is available for comparison. 1. No evidence of deep vein thrombosis involving the visualized veins of the right lower extremity. 2. Acute deep vein thrombosis involving the left common femoral vein and the left deep femoral vein. 3. Calf veins not well visualized. Isolated calf clot cannot absolutely be ruled out. Tables: Venous: + + + +--------+ + !Location !Overall !Flow properties !Thrombus!Comments ! + + + +--------+ + !Right common !Patent !Phasic; spontaneous;!--------! ! !femoral ! !normal augmentation;! ! ! ! ! !compressible; no ! ! ! ! ! !reflux ! ! ! + + + +--------+ + !Right femoral !Patent !Compressible !--------! ! + + + +--------+ + !Right profunda !Patent !Compressible !--------! ! !femoral ! ! ! ! ! + + + +--------+ + !Right popliteal !Patent !Phasic; spontaneous;!--------! ! ! ! !normal augmentation;! ! ! ! ! !compressible; no ! ! ! ! ! !reflux ! ! ! + + + +--------+ + !Right posterior !Difficult study ! !--------! ! !tibial ! ! ! ! ! + + + +--------+ + !Right peroneal !Difficult study ! !--------! ! + + + +--------+ + !Left common !Partially !Partially !Acute ! ! !femoral !thrombosed !compressible ! ! ! + + + +--------+ + !Left femoral !Patent !Compressible !--------! ! + + + +--------+ + !Left profunda !Totally !Compressible !Acute !Proximally.! !femoral !thrombosed ! ! ! ! + + + +--------+ + !Left popliteal !Patent !Phasic; spontaneous;!--------! ! ! ! !normal augmentation;! ! ! ! ! !compressible; no ! ! ! ! ! !reflux ! ! ! + + + +--------+ + !Left posterior !Difficult study ! !--------! ! !tibial ! ! ! ! ! + + + +--------+ + !Left peroneal !Difficult study ! !--------! ! + + + +--------+ + *Velocities are expressed in cm/s, Diameters are expressed in mm Prepared and Electronically Authenticated Williams Shrestha [id number] Procedure Note Williams Shrestha MD - 01/12/2025 [address] [place] [address] [email or web address] [email or web address] Complete Lower Extremity Duplex Patient: Chase Lainez Study ID: [id number] Gender: M : 1970 Age: 54 Race: [employer] Height Study Date: 01/11/2025 Weight: Access. #: [id number] *Referring Physician:* Fernanda Pedroza Jeanette *Ordering Physician:* Fernanda Pedroza *Delivery Driver Assistant:* Roxy Hassan History: Edema of both lower extremities. PMH: No prior study isavailable for comparison. Study data: Study status: Routine. Complete lower extremity venous duplex evaluation. Doppler flow study including spectral analysis,color and becerra scale imaging. Birthdate: Patient birthdate: 1970.Age: Patient is 54year(s) old. Sex: gender: male. Study date: Studydate: 01/11/2025. Study time: 04:47 PM. Location: Vascular laboratory.Patient status: Inpatient. Impressions Study data: No prior study is available for comparison. 1. No evidence of deep vein thrombosis involving the visualized veins ofthe right lower extremity. 2. Acute deep vein thrombosis involving the left common femoral vein andthe left deep femoral vein. 3. Calf veins not well visualized. Isolated calf clot cannot absolutelybe ruled out. Tables: Venous: + + + +--------+ + !Location !Overall !Flow properties !Thrombus!Comments! + + + +--------+ + !Right common !Patent !Phasic;spontaneous;!--------! ! !femoral ! !normal augmentation;! !! ! ! !compressible; no ! !! ! ! !reflux ! !! + + + +--------+ + !Right femoral !Patent !Compressible!--------! ! + + + +--------+ + !Right profunda !Patent !Compressible!--------! ! !femoral ! ! ! !! + + + +--------+ + !Right popliteal !Patent !Phasic;spontaneous;!--------! ! ! ! !normal augmentation;! !! ! ! !compressible; no ! !! ! ! !reflux ! !! + + + +--------+ + !Right posterior !Difficult study! !--------! ! !tibial ! ! ! !! + + + +--------+ + !Right peroneal !Difficult study! !--------! ! + + + +--------+ + !Left common !Partially !Partially !Acute! ! !femoral !thrombosed !compressible ! !! + + + +--------+ + !Left femoral !Patent !Compressible!--------! ! + + + +--------+ + !Left profunda !Totally !Compressible !Acute!Proximally.! !femoral !thrombosed ! ! !! + + + +--------+ + !Left popliteal !Patent !Phasic;spontaneous;!--------! ! ! ! !normal augmentation;! !! ! ! !compressible; no ! !! ! ! !reflux ! !! + + + +--------+ + !Left posterior !Difficult study! !--------! ! !tibial ! ! ! !! + + + +--------+ + !Left peroneal !Difficult study! !--------! ! + + + +--------+ + *Velocities are expressed in cm/s, Diameters are expressed in mm Prepared and Electronically Authenticated Williams Shrestha [id number] Fernanda LOZA US ORDERABLES Final Result * (ABNORMAL) HEPATIC FUNCTION PANEL (01/07/2025 6:30 AM CDT) Only the most recent of2 resultswithin the time period is included. TOTAL PROTEIN 5.8(L) 6.7 - 8.6 g/dL 01/07/2025 10:09 AM [facility] [place] [facility] ALBUMIN 2.9(L) 3.5 - 5.2 g/dL 01/07/2025 10:09 AM [facility] BILIRUBIN TOTAL 0.4 0.0 - 1.2 mg/dL 01/07/2025 10:09 AM [facility] BILIRUBIN DIRECT 0.2 <0.4 mg/dL 01/08/20 25 10:09 AM [facility] ALKALINE PHOSPHATASE 98 40 - 129 U/L 01/07/2025 10:09 AM [facility] AST 24 <41 U/L 01/07/2025 10:09 AM [facility] ALT 15 <42 U/L 01/07/2025 10:09 AM [facility] Blood Venipuncture / Unknown 01/07/2025 6:30 AM CDT 01/07/2025 6:39 AM T [facility] LABORATORY SERVICES - . [place] - 01/07/2025 10:09 AM CDT Samples containing indocyanine green cause interferences on Total and/or Direct Bilirubin and must not be measured. Jose Edwards MD CHEMISTRY ORDERABLES Final Resul t [facility] SERVICES [facility]# [id number] [facility] [address] [address] * (ABNORMAL) HEMOGLOBIN AND HEMATOCRIT (01/06/2025 9:21 AM CDT) Only the most recent of19 resultswithin the time period is included. HEMOGLOBIN 7.8(L) 13.6 - 16.5 g/dL 01/06/2025 9:56 AM CDT [facility]OR[facility]ORY SERVICES [facility] Comment:Significant change f rom prior result, correlate clinically and redraw if necessary. HEMATOCRIT 26.0(L) 40.0 - 48.0 % 01/06/2025 9:56 AM CDT [facility]ORATORY SERVICES - [facility] Blood Venipuncture / Unknown 01/06/2025 9:21 AM CDT 01/06/2025 9:24 AM CDT Celina LOZA HEMATOLOGY ORDERABLES Final R esult Performing Organization Address City/[facility]/ZIP Co de Phone Number [facility] CLIA# [id number] [address] [place] [address] * TYPE AND SCREEN (01/06/2025 5:55 AM CDT) Only the most recent of6 resultswithin the time period is included. Pathologist [facility] ABO GROUP B 01/06/2025 8:40 AM CDT [facility]ORY SERVICES -- [facility] RH (D) TYPE Positive 01/06/2025 8:40 AM CDT [facility] SERVICES -- [facility] ANTIBODY SCREEN Negative 01/06/2025 8:40 AM CDT [facility] SERVICES -- [facility] Blood Venipuncture / Unknown 01/06/2025 5:55 AM CDT 01/06/2025 6:20 AM CDT Annabel Fox APRN BLOOD BANK ORDERABLES Edit ed Result - Final [facility]ORY SERVICES -- [facility] CLIA# [id number] [address] [place] [address] * PREPARE RED BLOOD CELLS (01/06/2025 5:37 AM CDT) Only the most recent of16 resultswithin the time period is included. COMPONENT TYPE [id number] [facility] -- [facility] COMPONENT IDENTIFICATION [id number] [facility] -- [facility] UNIT ABO B [facility] -- [facility] RH POS [facility] -- [facility] CROSSMATCH Compatible [facility] -- [facility] COMPONENT STATUS Returned [facility]ORY SERVICES -- [facility] COMPONENT EXPIRATION DATE/TIME [facility] -- [facility] COMPONENT CODING SYSTEM 7300 [facility] SERVICES -- [facility] VOLUME, BLOOD PRODUCT 350 [facility]OR[facility]ORY SERVICES -- .[facility] Other, specify 01/06/2025 5: 37 AM CDT Annabel Fox APRN LAB TRANSFUSION ORDERABLES Edited Result - Final [facility] SERVICES -- [facility] CLIA# [id number] [address] [place] [address] * POC LACTIC ACID (01/01/2025 1:40 PM CDT) Only the most recent of14 resultswithin the time period is included. Pathologist [facility] LACTIC ACID POC 0.8 <=2.0 mmol/L 01/01/2025 1:40 PM CDT [facility]ORY SERVICES - [facility] SPECIMEN SOURCE, GASES POC Arterial 01/01/2025 1:40 PM CDT [facility] LABORATORY SERVICES - [facility] COMMENT, GASES POC Responsible Clinical Caregiver notified 01/01/2025 1:40 PM CDT [facility]ORY SERVICES - [facility] Blood 01/01/2025 1:40 PM CDT 01/01/2025 1:41 PM CDT Evan Johnston MD POINT OF CARE TESTING Fi nal Result [facility] LABORATORY SERVICES - [facility] CLIA# [id number] [address] [place] [address] * (ABNORMAL) BLOOD GAS,(INCL. H+H, LYTES, GLUC) (01/01/2025 1:40 PM CDT) Only the most recent of14 resultswithin the time period is included. PH BLOOD POC 7.38 7.35 - 7.45 01/01/2025 1:40 PM CDT [facility] LABORATORY SERVICES - [facility] PCO2 POC 41 35 - 48 mm Hg 01/01/2025 1:40 PM CDT [facility] LABORATORY SERVICES - [facility] PO2 POC 234(H) 83 - 108 mm Hg 01/01/2025 1:40 PM CDT [facility] LABORATORY SERVICES - [facility] TCO2 (CALC) POC 26(H) 19 - 24 mmol/L 01/01/2025 1:40 PM CDT [facility] LABORATORY SERVICES [facility] HCO3 (CALC) POC 24 22 - 26 mmol/L 01/01/2025 1:40 PM CDT [facility] LABORATORY SERVICES - [facility] O2 SATURATION POC 100(H) 94 - 98 % 01/01/2025 1:40 PM CDT [facility] LABORATORY SERVICES - [facility] BASE EXCESS POC -1 -2 - 3 mmol/L 01/01/2025 1:40 PM CDT [facility] LABORATORY SERVICES - [facility] HEMOGLOBIN POC 7.9(L) 13.6 - 16.5 g/dL 01/01/2025 1:40 PM CDT [facility] LABORATORY SERVICES - [facility] HEMATOCRIT POC 24(L) 40 - 48 % 01/01/2025 1:40 PM CDT [facility] LABORATORY SERVICES - [facility] Comment:Estimated Value GLUCOSE POC 141(H) 74 - 99 mg/dL 01/01/2025 1:40 PM CDT [facility] LABORATORY SERVICES - . [facility] SODIUM POC 131(L) 136 - 145 mmol/L 01/01/2025 1:40 PM CDT [facility] LABORATORY SERVICES - [facility] POTASSIUM POC 4.4 3.5 - 5.0 mmol/L 01/01/2025 1:40 PM CDT [facility] LABORATORY SERVICES [facility] CHLORIDE POC 102 98 - 107 mmol/L 01/01/2025 1:40 PM CDT [facility] LABORATORY SERVICES [facility] CALCIUM IONIZED POC 4.5(L) 4.7 - 5.1 mg/dL 01/01/2025 1:40 PM CDT [facility] PH TEMP CORRECT 7.38 7.35 - 7.45 01/01/2025 1:40 PM T [facility] PCO2 TEMP CORRECT 41 35 - 48 mm Hg 01/01/2025 1:40 PM CDT [facility] PO2 TEMP CORRECT 234(H) 83 - 108 mm Hg 01/01/2025 1:40 PM T [facility] SPECIMEN SOURCE, GASES POC Arterial 01/01/2025 1:40 PM T [facility] PATIENT'S TEMPERATURE POC 37.0 degrees 01/01/2025 1:40 PM T [facility] COMMENT, GASES POC Responsible Clinical Caregiver notified 01/01/2025 1:40 PM T [facility] O2 SATURATION CALCULATED POC 100(H) 94 - 98 % 01/01/2025 1:40 PM T [facility] Comment:Calculated sO2 may b e less accurate due to the factors affecting the oxygen dissociation curve. Measured sO2 by Co-oximetry is unaffected by these factors. Clinical correlation is suggested. Blood, arterial 01/01/2025 1 :40 PM CDT 01/01/2025 1:41 PM CDT us Evan Johnston MD ABG ORDERABLES Final Re sult [facility]# [id number] 5 [facility] [address] [address] * DC ANES INSERT CATH, ART, PERCUT, SHORTTERM (01/01/2025 12:20 PM CDT) Narrative Theo Ni MD - 01/01/2025 12:20 PM CDT Theo Ni MD 01/01/2025 12:20 PM Arterial Line Insertion End Time: 01/01/2025 9:50 AM Patient location during procedure: OR Staffing Performed: Anesthesiologist (/) Authorized by: Theo Ni MD Performed by: Theo Ni MD time out called Patient was prepped and draped in usual sterile fashion Indications: multiple ABGs and hemodynamic monitoring Anesthetic total: 1 mL Hand hygiene performed prior to procedure Sterile Barriers: cap and mask Preparation: skin prepped with ChloraPrep Skin prep agent dried: skin prep agent completely dried prior to procedure Patient position: flat Location: right radial Seldinger technique used Catheter type: radial kit Catheter size: 20 G Catheter Length (in.): 4.5 [place] Identification: ultrasound guided Number of attempts: 1 Successful placement: yes Assessment: blood return through port Procedure uneventful Post-procedure: line secured, dressing applied and antibiotic disc placed us Theo Ni MD PROCEDURE/MINOR SURGICAL ORD ERABLES Final Result * DC ANES VNPNXR 3 YEARS/> PHYS/QHP SKILL, PERIPHERAL IV ADULT (01/01/2025 9:53 AM CDT) Narrative Theo Ni MD - 01/01/2025 9:53 AM CDT Theo Ni MD 01/01/2025 12:20 PM Peripheral Line Insertion Date/Time: 01/01/2025 9:53 AM Patient location during procedure: OR Staffing Performed: Anesthesiologist (/) Authorized by: Thoe Ni MD Performed by: Theo Ni MD Preparation: Skin prepped with ChloraPrep Skin prep agent dried: skin prep agent completely dried prior to procedure Hand hygiene: hand hygiene performed prior to procedure Location: right anterior forearm Ultrasound guided: yes Catheter size: 16 gauge Number of attempts: 1 Successful placement: yes Assessment: effective initial placement and positive blood return Procedure uneventful us Theo Ni MD PROCEDURE/MINOR SURGICAL ORD ERABLES Final Result * EKG 12-LEAD (12/31/2024 6:13 AM CDT) Only the most recent of3 resultswithin the time period is included. 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1970 Requested By: EVAN ROA Order Number: [id number] Ileana MD: Felisha Rosenberg Measurements Intervals [place] Rate: 56 P: 42 DC: 154 QRS: 5 QRSD: 102 T: 17 QT: 422 QTc: 409 Interpretive Statements SINUS BRADYCARDIA Electronically Signed On 12-31-2024 6:27:51 CDT by Felisha Rosenberg Procedure Note Felisha Rosenberg MD - 12/31/2024 [facility] [address] [place] [address] Test Date: 2024-12-31 Pat Name: CHASE LAINEZ Department: 0 Room: [address] [place] [address] Gender: Male 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1970 Requested By: EVAN ROA Order Number: [id number] Ileana MD: Felisha Rosenberg Measurements Intervals [place] Rate: 56 P: 42 DC: 154 QRS: 5 QRSD: 102 T: 17 QT: 422 QTc: 409 Interpretive Statements SINUS BRADYCARDIA Electronically Signed On 12-31-2024 6:27:51 CDT by Felisha Rosenberg us Laverne Israel MD ECG ORDERABLES Final Result Performing Organization Address City/State/[facility] Co de Phone Number INTERFACE SYSTEM Refer to clinic/hospital department * TRANSFUSE RED BLOOD CELLS (12/30/2024 3:01 PM CDT) Only the most recent of10 resultswithin the time period is included. us Rochelle Galaviz MD BLOOD TRANSFUSION ORDERABL ES Edited Result - Final * (ABNORMAL) ANAEROBIC/AEROBIC CULTURE W GRAM STAIN (12/30/2024 1:52 PM CDT) Only the most recent of4 resultswithin the time period is included. Pathologist [facility] CULTURE ENTEROBACTER CLOACAE COMPLEX(A) JOSEE MCG/ML 01/06/2025 1:20 PM CDT [facility] CULTURE STAPHYLOCOCCUS AUREUS(A) JOSEE MCG/ML 01/06/2025 1:20 PM T [facility] CULTURE STAPHYLOCOCCUS EPIDERMIDIS(A) JOSEE MCG/ML 01/06/2025 1:20 PM T [facility] CULTURE STREPTOCOCCUS CONSTELLATUS(A) JOSEE MCG/ML 01/06/2025 1:20 PM T [facility] CULTURE CORYNEBACTERIUM(A) JOSEE MCG/ML 01/06/2025 1:20 PM [facility] CULTURE 2+ or moderate Multiple Anaerobes Present(A) JOSEE MCG/ML 01/06/2025 1:20 PM T [facility] Comment:Anaerobe therapy rec ommendation: metronidazole. Alternatively: ampicillin/sulbactam or clindamycin. GRAM STAIN 2+ (Few) Gram positive cocci 01/06/2025 1:20 PM T [facility] GRAM STAIN 2+ (Few) Gram negative rods 01/06/2025 1:20 PM [facility] GRAM STAIN 1+ (Rare or Occasional) Gram positive rods 01/06/2025 1:20 PM [facility] GRAM STAIN 2+ (Few) Polymorphonuclear WBC 01/06/2025 1:20 PM [facility] Lesion/Drainage Fluid ENTIRE NECK / Unknown Collection / Unknown 12/30/2024 1:52 PM CDT 12/30/2024 4:40 PM CDT Narrative Organism Antibiotic Method Susceptibility Enterobacter cloacae complex CEFTRIAXONE JOSEE MCG/ML <=1 mcg/mL: Susceptible Enterobacter cloacae complex CEFTAZIDIME JOSEE MCG/ML <=1 mcg/mL: Susceptible Enterobacter cloacae complex GENTAMICIN JOSEE MCG/ML <=1 mcg/mL: Susceptible Enterobacter cloacae complex CIPROFLOXACIN JOSEE MCG/ML <=0.25 mcg/mL: Susceptible Enterobacter cloacae complex TRIMETHOPRIM/ SULFAMETHOXAZOLE JOSEE MCG/ML <=20 mcg/mL: Susceptible Enterobacter cloacae complex PIPERACILLIN/ TAZOBACTAM JOSEE MCG/ML <=4 mcg/mL: Susceptible Comment:Aminoglycosides shou ld not be used as monotherapy for infections outside the urinary tract. Consultation with an infectious diseases specialist is recommended. Staphylococcus aureus OXACILLIN (Nafcillin) JOSEE MCG/ML 0.5 mcg/mL: Susceptible Comment:Oxacillin (N afcillin) susceptible Staphylococcus species are predictably susceptible to cefazolin, ceftriaxone, cephalexin, and amoxicillin-clavulanate Staphylococcus aureus VANCOMYCIN JOSEE MCG/ML <=0.5 mcg/mL: Susceptible Staphylococcus aureus CLINDAMYCIN JOSEE MCG/ML 0.25 mcg/mL: Susceptible Staphylococcus aureus DOXYCYCLINE JOSEE MCG/ML <=0.5 mcg/mL: Susceptible Staphylococcus aureus TRIMETHOPRIM/ SULFAMETHOXAZOLE JOSEE MCG/ML <=10 mcg/mL: Susceptible Staphylococcus aureus RIFAMPIN JOSEE MCG/ML <=0.5 mcg/mL: Susceptible Comment:Rifampin ursula uld NOT be used alone for antimicrobial therapy. Streptococcus constellatus CEFTRIAXONE LE-RAMSEY Susceptible Streptococcus constellatus VANCOMYCIN LE-RAMSEY Susceptible Streptococcus constellatus CLINDAMYCIN LE-RAMSEY Susceptible Streptococcus constellatus PENICILLIN E TEST 0.125 mcg/mL: Susceptible Stanley Stern MD MICROBIOLOGY - GENERAL ORDERABLE S Edited Result - Final [facility]# [id number] [address] [place] [address] * UNFRACTIONATED HEPARIN MONITORING (12/30/2024 4:16 AM CDT) Only the most recent of42 resultswithin the time period is included. ANTI-XA UNFRAC HEP 0.30 See Interpreta tion. IU/mL 12/30/2024 4:59 AM CDT [facility] [employer] [facility] Blood Venipuncture / Unknown 12/30/2024 4:16 AM CDT 12/30/2024 4:21 AM CDT Narrative [facility] [employer] [facility] - 12/30/2024 4:59 AM CDT Unfractionated Heparin Therapeutic Range: 0.30-0.70 IU/ml Refer to pharmacy adult heparin protocol for further recommendation. The reference range for this test is specific to the anticoagulant and is not appropriate for monitoring patients on a DOAC protocol. Evan Johnston MD HEMATOLOGY ORDERABLES Fi nal Result [facility]# [id number] [address] [place] [address] * XR CHEST PA OR AP 1 VW (12/25/2024 9:55 PM CDT) Only the most recent of3 resultswithin the time period is included. Anatomical Region Laterality Modality Chest Computed Radiogr aphy 12/25/2024 9:56 PM CDT Impressions 12/25/2024 10:52 PM CDT IMPRESSION: 1. Cardiomegaly. DICTATION LOCATION: Location 4. Narrative 12/25/2024 10:52 PM CDT EXAMINATION: XR CHEST PA OR AP 1 VW DATE: 12/25/2024 9:55 PM INDICATION: Tracheostomy placement. TECHNIQUE: A single frontal view of the chest was obtained. COMPARISON: Chest single view 12/18/2024, PET/CT 11/10/24 FINDINGS: Sensitivity is decreased by obesity. There is no pneumonia, pleural effusion, or pneumothorax. Cardiomegaly is noted. There is a tracheostomy tube in expected position. Surgical drains overlie right chest. Right chest skin tigist are noted. A catheter overlies the mediastinum. Procedure Note Dickson Grubbs MD - 12/25/2024 EXAMINATION: XR CHEST PA OR AP 1 VW DATE: 12/25/2024 9:55 PM INDICATION: Tracheostomy placement. TECHNIQUE: A single frontal view of the chest was obtained. COMPARISON: Chest single view 12/18/2024, PET/CT 11/10/24 FINDINGS: Sensitivity is decreased by obesity. There is no pneumonia, pleural effusion, or pneumothorax. Cardiomegaly is noted. There is a tracheostomy tube in expected position. Surgical drains overlie right chest. Right chest skin tigist are noted. A catheter overlies the mediastinum. IMPRESSION: 1. Cardiomegaly. DICTATION LOCATION: Location 4. Shira Nagy APRN DIAGNOSTIC IMAGING ORDER DANIEL Final Result * TSH (12/25/2024 7:56 AM CDT) TSH 1.93 0.27 - 4.20 uIU/mL 12/25/2024 8:47 AM CDT [facility] Blood Venipuncture / Unknown 12/25/2024 7:56 AM CDT 12/25/2024 8:00 AM CDT us Stanley Stern MD CHEMISTRY ORDERABLES Final Resul t [facility] CLIA# [id number] [address] [place] [place] [address] * XR ABDOMEN FOR FEEDING TUBE 1 VW (12/21/2024 4:34 PM CDT) Only the most recent of2 resultswithin the time period is included. Anatomical Region Laterality Modality Abdomen Computed Radiogr aphy 12/21/2024 4:34 PM CDT Impressions 12/21/2024 4:46 PM CDT IMPRESSION: 1. Nasoenteric tube tip in the stomach. DICTATION LOCATION: Location 4. Narrative 12/21/2024 4:46 PM CDT EXAMINATION: XR ABDOMEN FOR FEEDING TUBE 1 VW DATE: 12/21/2024 4:34 PM INDICATION: Nasogastric tube placement. TECHNIQUE: An upright view of the abdomen was obtained. COMPARISON: Abdomen radiograph 12/09/2024 FINDINGS: The lower abdomen is excluded. The nasoenteric tube tip is in the stomach. A surgical drain overlies right chest. Skin tigist are noted. Procedure Note Dickson Grubbs MD - 12/21/2024 EXAMINATION: XR ABDOMEN FOR FEEDING TUBE 1 VW DATE: 12/21/2024 4:34 PM INDICATION: Nasogastric tube placement. TECHNIQUE: An upright view of the abdomen was obtained. COMPARISON: Abdomen radiograph 12/09/2024 FINDINGS: The lower abdomen is excluded. The nasoenteric tube tip is in the stomach. A surgical drain overlies right chest. Skin tigist are noted. IMPRESSION: 1. Nasoenteric tube tip in the stomach. DICTATION LOCATION: Location 4. Sixto Mittal MD DIAGNOSTIC IMAGING ORDERABLES Final Result * MANUAL DIFFERENTIAL (12/21/2024 5:02 AM CDT) Only the most recent of16 resultswithin the time period is included. Pathologist [facility] PLATELET EST. Consistent w Count 12/21/2024 6:47 AM CDT [facility] LABORATORY SERVICES - . [facility] ANISOCYTOSIS 2+ /hpf 12/21/2024 6:47 AM CDT [facility]ATORY SERVICES - [facility] POIKILOCYTES 1+ /hpf 12/21/2024 6:47 AM CDT [facility]ATORY SERVICES - . [facility] MICROCYTES 1+ /hpf 12/21/2024 6:47 AM CDT [facility] LABORATORY SERVICES - . [facility] POLYCHROMASIA 1+ /hpf 12/21/2024 6:47 AM CDT [facility] LABORATORY SERVICES - . [facility] OVALOCYTES 1+ /hpf 12/21/2024 6:47 AM CDT [facility] LABORATORY SERVICES - . [facility] Blood Venipuncture / Unknown 12/21/2024 5:02 AM CDT 12/21/2024 5:08 AM CDT Evan Johnston MD HEMATOLOGY ORDERABLES CO M Final Result [facility] [employer] [facility]# [id number] [address] [place], [place] [address] [place] [address] * (ABNORMAL) CBC WITH DIFFERENTIAL (12/21/2024 5:02 AM CDT) Only the most recent of16 resultswithin the time period is included. WBC 7.0 4.0 - 9.8 K/uL 12/21/2024 5:36 AM CDT [facility] LABORATORY SERVICES [facility] RBC 2.91(L) 4.50 - 5.40 M/uL 12/21/2024 5:36 AM CDT [facility] LABORATORY SERVICES - [facility] HEMOGLOBIN 7.0(L) 13.6 - 16.5 g/dL 12/21/2024 5:36 AM CDT [facility] LABORATORY SERVICES - [facility] HEMATOCRIT 24.2(L) 40.0 - 48.0 % 12/21/2024 5:36 AM CDT [facility] LABORATORY SERVICES - . [facility] MCV 83.2 82.0 - 99.0 fL 12/21/2024 5:36 AM CDT [facility] SERVICES - [facility] MCH 24.1(L) 27.2 - 32.6 pg 12/21/2024 5:36 AM CDT [facility] SERVICES - [facility] MCHC 28.9(L) 31.5 - 35.5 g/dL 12/21/2024 5:36 AM CDT [facility] SERVICES - [facility] RDW 22.6(H) 11.5 - 14.5 % 12/21/2024 5:36 AM CDT [facility] - [facility] RDW-STDEV 67.5(H) 37.1 - 48.7 fL 12/21/2024 5:36 AM [employer] LABORATORY SERVICES - [facility] PLATELETS 131(L) 140 - 350 K/uL 12/21/2024 5:36 AM T [facility] SERVICES - [facility] MPV 10.6 9.3 - 12.4 fL 12/21/2024 5:36 AM [employer] [facility]ATORY SERVICES - [facility] NEUTROPHILS 72 % 12/21/2024 5:36 AM T [facility] LABORATORY SERVICES - [facility] LYMPHOCYTES 15 % 12/21/2024 5:36 AM CDT [facility] LABORATORY SERVICES - [facility] MONOCYTES 10 % 12/21/2024 5:36 AM CDT [facility] LABORATORY SERVICES - . [facility] EOSINOPHILS 2 % 12/21/2024 5:36 AM CDT [facility] LABORATORY SERVICES - [facility] BASOPHILS 0 % 12/21/2024 5:36 AM CDT [facility] LABORATORY SERVICES - [facility] IMMATURE GRANULOCYTES 1 % 12/21/2024 5:36 AM CDT [facility] LABORATORY SERVICES - [facility] Comment:IG (Immature Granulo cyte) count includes Metamyelocytes, Myelocytes, and Promyelocytes NEUTROPHIL ABSOLUTE 5.02 1.90 - 7.00 K/uL 12/21/2024 5:36 AM CDT [facility] LABORATORY SERVICES - . [facility] LYMPHOCYTE ABSOLUTE 1.06 0.70 - 4.50 K/uL 12/21/2024 5:[address] [facility] LABORATORY SERVICES - [facility] MONOCYTE ABSOLUTE 0.71 0.10 - 1.30 K/uL 12/21/2024 5:36 AM CDT [facility] LABORATORY SERVICES - [facility] EOSINOPHIL ABSOLUTE 0.13 0.00 - 0.70 K/uL 12/21/2024 5:36 AM CDT [facility] LABORATORY SERVICES - [facility] BASOPHILS ABSOLUTE 0.01 0.00 - 0.20 K/uL 12/21/2024 5:36 AM CDT [facility] LABORATORY SERVICES - [facility] IMMATURE GRANULOCYTES ABSOLUTE 0.06(H) 0.00 - 0.03 K/uL 12/21/2024 5:36 AM CDT [facility] LABORATORY SERVICES - [facility] Blood Venipuncture / Unknown 12/21/2024 5:02 AM CDT 12/21/2024 5:08 AM CDT Evan Johnston MD HEMATOLOGY ORDERABLES Fi nal Result [facility] [employer] SERVICES [facility]# [id number] [address] [place], [place] [id number] * (ABNORMAL) COMPREHENSIVE METABOLIC PANEL (12/21/2024 5:02 AM CDT) Only the most recent of8 resultswithin the time period is included. SODIUM 133(L) 136 - 145 mmol/L 12/21/2024 5:[address] [facility] LABORATORY SERVICES [facility] POTASSIUM 4.3 3.5 - 5.0 mmol/L 12/21/2024 5:[address] [facility] LABORATORY SERVICES - . [facility] CHLORIDE 100 98 - 107 mmol/L 12/21/2024 5:[address] [facility] LABORATORY SERVICES - . [place] CO2 22 22 - 29 mmol/L 12/21/2024 5:50 AM T [facility] LABORATORY SERVICES - . [facility] CALCIUM 7.7(L) 8.6 - 10.2 mg/dL 12/21/2024 5:[address] [facility] LABORATORY SERVICES - . [place] BUN 25(H) 6 - 20 mg/dL 12/21/2024 5:50 AM [facility] LABORATORY [facility] CREATININE 0.57(L) 0.67 - 1.17 mg/dL 12/21/2024 5:50 AM [facility] GLUCOSE 201(H) 74 - 99 mg/dL 12/21/2024 5:50 AM [facility] TOTAL PROTEIN 5.4(L) 6.7 - 8.6 g/dL 12/21/2024 5:50 AM [facility] ALBUMIN 2.8(L) 3.5 - 5.2 g/dL 12/21/2024 5:50 AM [facility] BILIRUBIN TOTAL 0.8 0.0 - 1.2 mg/dL 12/21/2024 5:50 AM [facility] ALKALINE PHOSPHATASE 107 40 - 129 U/L 12/21/2024 5:50 AM [facility] AST 36 <41 U/L 12/21/2024 5:50 AM [facility] ALT 30 <42 U/L 12/21/2024 5:50 AM [facility] GFR >60 >=60 mL/min/1.7 3 sq meter 12/21/2024 5:50 AM [facility] Comment:eGFR calculated with 2020 CKD-EPI equation. Vegetarian diet, extremely high or low muscle mass, and may affect results. Cystatin C with Glomerular Filtration Rate is a suitable alternative for these patients. ANION GAP 11 8 - 16 mmol/L 12/21/2024 5:50 AM [facility] [employer] [facility] Blood Venipuncture / Unknown 12/21/2024 5:02 AM CDT 12/21/2024 5:08 AM [facility] - 12/21/2024 5:50 AM [facility] Samples containing indocyanine green cause interferences on Total and/or Direct Bilirubin and must not be measured. Oleksandr Dave MD CHEMISTRY ORDERABLES Final Re sult [facility] CLIA# [id number] [address] [facility] [place] [id number] * LACTIC ACID (12/19/2024 9:01 PM CDT) LACTIC ACID 1.5 <=2.0 mmol/L 12/19/2024 9:27 PM CDT [facility] Blood Venipuncture / Unknown 12/19/2024 9:01 PM CDT 12/19/2024 9:06 PM CDT Lillian Galaviz MD CHEMISTRY ORDERABLES Final Result Performing Organization Address [facility] Co de Phone Number [facility] CLIA# [id number] [address] [facility] [place] [id number] * US DOPPLER VENOUS ARM RIGHT (12/19/2024 10:12 AM CDT) Anatomical Region Laterality Modality Upper Extremity Ultrasound 12/19/2024 9:38 AM CDT Narrative 12/20/2024 6:13 AM CDT [address] [address] [email or web address] Venous Exam Limited Upper Extremity Duplex Patient: Chase Lainez Study ID: [id number] Gender: M : 1970 Age: 54 Race: CAU Height Study Date: 12/19/2024 Weight: Access. #: [id number] *Referring Physician:* Oleksandr Dave Syed Saad *Ordering Physician:* Oleksandr DaveDelivery Driver Assistant:Mare Banda Indications: Right upper extremity pain. History: PMH: No prior study is available for comparison. Study data: Study status: STAT. Right upper extremity venous duplex. Doppler flow study including spectral analysis, color and becerra scale imaging. Birthdate: Patient birthdate: 1970. Age: Patient is 54year(s) old. Sex: gender: male. Study date: Study date: 12/19/2024. Study time: 09:38 AM. Location: Vascular laboratory. Patient status: Inpatient. Impressions No evidence of deep or superficial vein thrombosis involving the veins of the right upper extremity. Tables: Venous: + + + + + !Location !Overall !Flow properties !Comments ! + + + + + !Right internal jugular!Not visualized! !Bandaging.! + + + + + !Right subclavian !Patent !Phasic; spontaneous; normal! ! ! ! !augmentation; compressible ! ! + + + + + !Right axillary !Patent !Phasic; spontaneous; normal! ! ! ! !augmentation; compressible ! ! + + + + + !Right brachial !Patent !Phasic; spontaneous; normal! ! ! ! !augmentation; compressible ! ! + + + + + !Right cephalic ! !Compressible ! ! + + + + + !Right basilic ! !Compressible ! ! + + + + + !Right radial ! !Compressible ! ! + + + + + !Right ulnar ! !Compressible ! ! + + + + + !Left subclavian !Patent !Phasic; spontaneous; normal! ! ! ! !augmentation; compressible ! ! + + + + + *Velocities are expressed in cm/s, Diameters are expressed in mm Prepared and Electronically Authenticated Williams Shrestha [id number] Procedure Note Williams Shrestha MD - 12/20/[address] [address] [email or web address] Venous Exam Limited Upper Extremity Duplex Patient: Chase Lainez Study ID: [id number] Gender: M : 1970 Age: 54 Race: CAU Height Study Date: 12/19/2024 Weight: Access. #: [id number] *Referring Physician:Oleksandr Martinez Syed Saad *Ordering Physician:Oleksandr MartinezDelivery Driver Assistant:Mare Banda Indications: Right upper extremity pain. History: PMH: No prior study is available for comparison. Study data: Study status: STAT. Right upper extremity venousduplex. Doppler flow study including spectral analysis, color and becrera scaleimaging. Birthdate: Patient birthdate: 1970. Age: Patient is 54year(s)old. Sex: gender: male. Study date: Study date: 12/19/2024. Studytime: 09:38 AM. Location: Vascular laboratory. Patient status: Inpatient. Impressions No evidence of deep or superficial vein thrombosis involving the veins ofthe right upper extremity. Tables: Venous: + + + + + !Location !Overall !Flow properties!Comments ! + + + + + !Right internal jugular!Notvisualized! !Bandaging.! + + + + + !Right subclavian !Patent !Phasic; spontaneous;normal! ! ! ! !augmentation; compressible !! + + + + + !Right axillary !Patent !Phasic; spontaneous;normal! ! ! ! !augmentation; compressible !! + + + + + !Right brachial !Patent !Phasic; spontaneous;normal! ! ! ! !augmentation; compressible !! + + + + + !Right cephalic ! !Compressible! ! + + + + + !Right basilic ! !Compressible! ! + + + + + !Right radial ! !Compressible! ! + + + + + !Right ulnar ! !Compressible! ! + + + + + !Left subclavian !Patent !Phasic; spontaneous;normal! ! ! ! !augmentation; compressible !! + + + + + *Velocities are expressed in cm/s, Diameters are expressed in mm Prepared and Electronically Authenticated Williams Shrestha [id number]:17 us Oleksandr Noam Dave MD US ORDERABLES Final Result * US DUPLEX ARTERIAL ARM RIGHT (12/19/2024 10:11 AM CDT) Anatomical Region Laterality Modality Upper Extremity Ultrasound 12/19/2024 9:23 AM CDT Narrative 12/20/2024 6:13 AM CDT [address] [address] [email or web address] Upper Extremity Arterial Duplex Study Patient: FatouChase nichole Study ID: [id number] Gender: M : 1970 Age: 54 Race: CAU Height Study Date: 12/19/2024 Weight: Access. #: [id number] *Referring Physician:Oleksandr Maritnez Syed Saad *Ordering Physician:Oleksandr Martinez *Delivery Driver Assistant:Mare Banda Indications: Right upper extremity pain. History: Risk factors: Former tobacco use; date of cessation unknown. Hypertension. Diabetes mellitus. Hyperlipidemia. Study data: Study status: STAT. Procedure: A vascular evaluation was performed with the patient in the supine position. Imaged vessel(s): the right subclavian, right axillary, right brachial, right radial, and right ulnar arteries. Image quality was good. Limited upper extremity arterial duplex study. Right lateral evaluation with duplex scan and Doppler flow study including spectral analysis, color and becerra scale imaging. Birthdate: Patient birthdate: 1970. Age: Patient is 54year(s) old. Sex: gender: male. Study date: Study date: 12/19/2024. Study time: 09:23 AM. Location: Vascular laboratory. Patient status: Inpatient. Impressions Normal right upper extremity arterial duplex examination. Tables: Arterial: + +-----+ + !Location !V sys!Flow analysis ! + +-----+ + !Right subclavian !191 !Multiphasic waveform! + +-----+ + !Right axillary - proximal!136 !Multiphasic waveform! + +-----+ + !Right axillary - distal !131 !Multiphasic waveform! + +-----+ + !Right brachial - proximal!175 !Multiphasic waveform! + +-----+ + !Right brachial - mid !146 !Multiphasic waveform! + +-----+ + !Right brachial - distal !110 !Multiphasic waveform! + +-----+ + !Right radial - proximal !137 !Multiphasic waveform! + +-----+ + !Right radial - mid !138 !Multiphasic waveform! + +-----+ + !Right radial - distal !147 !Multiphasic waveform! + +-----+ + !Right ulnar - proximal !89 !Multiphasic waveform! + +-----+ + !Right ulnar - mid !117 !Multiphasic waveform! + +-----+ + !Right ulnar - distal !61 !Multiphasic waveform! + +-----+ + *Velocities are expressed in cm/s, Diameters are expressed in cm Prepared and Electronically Authenticated Williams Shrestha [id number]:32 Procedure Note Williams Shrestha MD - 12/20/[address] [address] [email or web address] Upper Extremity Arterial Duplex Study Patient: Chase Lainez Study ID: [id number] Gender: M : 1970 Age: 54 Race: CAU Height Study Date: 12/19/2024 Weight: Access. #: [id number] *Referring Physician:* Oleksandr Dave Syed Saad *Ordering Physician:* Oleksandr Dave *Delivery Driver Assistant:* Mare Loyola Indications: Right upper extremity pain. History: Risk factors: Former tobacco use; date of cessation unknown. Hypertension. Diabetes mellitus. Hyperlipidemia. Study data: Study status: STAT. Procedure: A vascular evaluationwas performed with the patient in the supine position. Imaged vessel(s): theright subclavian, right axillary, right brachial, right radial, and rightulnar arteries. Image quality was good. Limited upper extremity arterialduplex study. Right lateral evaluation with duplex scan and Doppler flowstudy including spectral analysis, color and becerar scale imaging. Birthdate: Patient birthdate: 1970. Age: Patient is 54year(s) old. Sex: gender: male. Study date: Study date: 12/19/2024. Study time: 09:23AM. Location: Vascular laboratory. Patient status: Inpatient. Impressions Normal right upper extremity arterial duplex examination. Tables: Arterial: + +-----+ + !Location !V sys!Flow analysis ! + +-----+ + !Right subclavian !191 !Multiphasic waveform! + +-----+ + !Right axillary - proximal!136 !Multiphasic waveform! + +-----+ + !Right axillary - distal !131 !Multiphasic waveform! + +-----+ + !Right brachial - proximal!175 !Multiphasic waveform! + +-----+ + !Right brachial - mid !146 !Multiphasic waveform! + +-----+ + !Right brachial - distal !110 !Multiphasic waveform! + +-----+ + !Right radial - proximal !137 !Multiphasic waveform! + +-----+ + !Right radial - mid !138 !Multiphasic waveform! + +-----+ + !Right radial - distal !147 !Multiphasic waveform! + +-----+ + !Right ulnar - proximal !89 !Multiphasic waveform! + +-----+ + !Right ulnar - mid !117 !Multiphasic waveform! + +-----+ + !Right ulnar - distal !61 !Multiphasic waveform! + +-----+ + *Velocities are expressed in cm/s, Diameters are expressed in cm Prepared and Electronically Authenticated Williams Shrestha [id number]:32 us Oleksandr Dave MD US ORDERABLES Final Result * (ABNORMAL) CK (12/19/2024 9:12 AM CDT) Pathologist [facility] CK 466(H) 20 - 200 U/L 12/19/2024 9:53 AM CDT [facility] Blood Venipuncture / Unknown 12/19/2024 9:12 AM CDT 12/19/2024 9:14 AM CDT Evan Johnston MD CHEMISTRY ORDERABLES Fin al Result Performing Organization Address City/[facility]/ZIP Co de Phone Number [facility] [employer] [facility] CLIA# [id number] [address] [place] [id number] * (ABNORMAL) PTT (12/18/2024 11:04 PM CDT) Only the most recent of3 resultswithin the time period is included. Pathologist [facility] PTT 85.8(H) 24.4 - 36.4 seconds 12/18/2024 11:40 PM CDT [facility] Comment: PTT Therapeutic Range: Heparin Level PTT (seconds) <0.10 units/mL <55.8 0.10 - 0.30 units/mL 55.8 - 74.3 0.30 - 0.70 units/mL* 74.3 - 111.2* 0.70 - 1.00 units/mL 111.2 - 138.9 *corresponds to therapeutic range for unfractionated heparin Blood Venipuncture / Unknown 12/18/2024 11:04 PM CDT 12/18/2024 11:08 PM CDT Evan Johnston MD HEMATOLOGY ORDERABLES Fi nal Result Performing Organization Address City/[facility]/ZIP Co de Phone Number [facility] [employer] [facility]# [id number] [address] [place] [id number] * (ABNORMAL) PROTIME-INR (12/18/2024 11:04 PM CDT) Pathologist [facility] PROTIME 15.5(H) 12.7 - 15.1 Seconds 12/18/2024 11:40 PM CDT [facility] LABORATORY [facility] INR 1.2(H) 0.9 - 1.1 12/18/2024 11:40 PM CDT [facility] LABORATORY [facility] Blood Venipuncture / Unknown 12/18/2024 11:04 PM CDT 12/18/2024 11:08 PM CDT [facility] LABORATORY [facility] - 12/18/2024 11:40 PM CDT INR Therapeutic Range: Adult: 2.0 - 3.0 for pulmonary embolism or prophylaxis against venous thrombosis or systemic embolization. 2.0 - 3.0 for patients with tissue heart valves. 2.5 - 3.5 for patients with mechanical heart valves or post OR. Pediatric (12 years and under): 1.5 - 3.0 Although the target range in children is not well established, INR values of 1.5 - 3.0 are recommended for most patients. Higher values have been used in children with prosthetic cardiac valves and hereditary clotting disorders. [place] (<3 days) therapeutic ranges have not been established. Evan Johnston MD HEMATOLOGY ORDERABLES nal Result [facility]# [id number] [address] [facility] [address] [place] [address] * (ABNORMAL) OXIMETRY (12/18/2024 3:19 PM CDT) [facility] OXYHEMOGLOBIN POC 97.0 94.0 - 97.0 % 12/18/2024 3:19 PM CDT [facility] LABORATORY [facility] HEMOGLOBIN POC 8.4(L) 13.6 - 16.5 g/dL 12/18/2024 3:19 PM T [facility] LABORATORY [facility] OXYGEN CONTENT POC 11.9(L) 15.0 - 23.0 mL/dL 12/18/2024 3:19 PM CDT [facility] LABORATORY [facility] O2 SATURATION POC 100(H) 94 - 98 % 12/18/2024 3:19 PM CDT [facility] LABORATORY SERVICES - [facility] SPECIMEN SOURCE, GASES POC Arterial 12/18/2024 3:19 PM CDT [facility] LABORATORY SERVICES - [facility] SAMPLE SITE, GASES POC N-SY 12/18/2024 3:19 PM CDT [facility] LABORATORY SERVICES - [facility] COMMENT, GASES POC Responsible Clinical Caregiver notified 12/18/2024 3:19 PM CDT [facility] LABORATORY SERVICES - [facility] Blood 12/18/2024 3:19 PM CDT 12/18/2024 3:21 PM CDT Evan Johnston MD ABG ORDERABLES Final Re sult [facility] CLIA# [id number] [address] [place] [address] * (ABNORMAL) METHEMOGLOBIN QUANTITATIVE (12/18/2024 3:19 PM CDT) METHEMOGLOBIN QUANT POC <0.7 <1.5 % 12/18/2024 3:19 PM CDT [facility] LABORATORY [facility] - [facility] HEMOGLOBIN POC 8.4(L) 13.6 - 16.5 g/dL 12/18/2024 3:19 PM CDT [facility] LABORATORY SERVICES - [facility] COMMENT, GASES POC Responsible Clinical Caregiver notified 12/18/2024 3:19 PM CDT [facility] LABORATORY SERVICES - [facility] Blood 12/18/2024 3:19 PM CDT 12/18/2024 3:21 PM CDT Evan Johnston MD ABG ORDERABLES Final Re sult [facility] CLIA# [id number] [address] [place] [address] * (ABNORMAL) CARBOXYHEMOGLOBIN (12/18/2024 3:19 PM CDT) CARBOXYHEMOGLOBIN POC 2.9 <=7.0 % 12/18/2024 3:19 PM CDT [facility] LABORATORY [facility] Comment: Reference Range: Non-Smokers: 0-2% Smokers: < or = 9% Toxic: > 15% HEMOGLOBIN POC 8.4(L) 13.6 - 16.5 g/dL 12/18/2024 3:19 PM CDT [facility] LABORATORY [facility] COMMENT, GASES POC Responsible Clinical Caregiver notified 12/18/2024 3:19 PM CDT [facility] Blood 12/18/2024 3:19 PM CDT 12/18/2024 3:21 PM CDT us Evan Johnston MD ABG ORDERABLES Final Re sult [facility]# [id number] [address] [place] [address] * DC ANES INSERT CATH, ART, PERCUT, SHORTTERM (12/18/2024 1:20 PM CDT) Narrative Chuy Toribio AA-C - 12/18/2024 1:20 PM CDT Chuy Toribio AA-C 12/18/2024 1:20 PM Arterial Line Insertion Start Time: 12/18/2024 12:05 PM End Time: 12/18/2024 12:12 PM Patient location during procedure: OR Staffing Performed: Anesthesiologist (/) Authorized by: Vikas Hendrickson MD Performed by: Chuy Toribio AA-C time out called Patient was prepped and draped in usual sterile fashion Indications: multiple ABGs and hemodynamic monitoring Hand hygiene performed prior to procedure Sterile Barriers: gloves, cap, mask and sterile towels Preparation: skin prepped with ChloraPrep Skin prep agent dried: skin prep agent completely dried prior to procedure Patient position: flat Location: right radial Catheter type: arterial introducer Catheter size: 20 G Catheter Length (in.): 1.75 [place] Identification: ultrasound guided Number of attempts: 1 Successful placement: yes Assessment: blood return through port Procedure uneventful Post-procedure: line secured and dressing applied us Vikas Hendrickson MD PROCEDURE/MINOR SURGICAL ORDERA BLES Final Result * DC ANES VNPNXR 3 YEARS/> PHYS/QHP SKILL, PERIPHERAL IV ADULT (12/18/2024 12:20 PM CDT) Narrative Chuy Toribio AA-C - 12/18/2024 12:20 PM CDT Chuy Toribio AA-C 12/18/2024 1:21 PM Peripheral Line Insertion Date/Time: 12/18/2024 12:20 PM Staffing Performed: Anesthesiologist (/DO) Authorized by: Vikas Hendrickson MD Performed by: Chuy Toribio AA-C Preparation: Skin prepped with alcohol Skin prep agent dried: skin prep agent completely dried prior to procedure Hand hygiene: hand hygiene performed prior to procedure Patient was prepped and draped in usual sterile fashion time out called Location: right anterior forearm Ultrasound guided: yes Catheter size: 18 gauge Number of attempts: 1 Successful placement: yes Assessment: effective initial placement and positive blood return Procedure uneventful Vikas Hendrickson MD PROCEDURE/MINOR SURGICAL ORDERA BLES Final Result * (ABNORMAL) RESPIRATORY CULTURE WITH GRAM STAIN (12/17/2024 6:34 PM CDT) CULTURE ENTEROBACTER CLOACAE COMPLEX(A) OJSEE MCG/ML 12/20/2024 8:15 AM CDT [facility] LABORATORY [facility] CULTURE 2+ or moderate Normal upper respiratory lakisha JOSEE MCG/ML 12/20/2024 8:15 AM CDT [facility] GRAM STAIN Non diagnostic pattern 12/20/2024 8:15 AM CDT [facility] LABORATORY [facility] GRAM STAIN 2+ (Few) Polymorphonuclear WBC 12/20/2024 8:15 AM T [facility] LABORATORY [facility] Aspirate (Trachea) Collection / Unknown 12/17/2024 6:34 PM CDT 12/17/2024 7:31 PM CDT Narrative Organism Antibiotic Method Susceptibility Enterobacter cloacae complex CEFTRIAXONE JOSEE MCG/ML <=1 mcg/mL: Susceptible Enterobacter cloacae complex CEFTAZIDIME JOSEE MCG/ML <=1 mcg/mL: Susceptible Enterobacter cloacae complex GENTAMICIN JOSEE MCG/ML <=1 mcg/mL: Susceptible Enterobacter cloacae complex CIPROFLOXACIN JOSEE MCG/ML <=0.25 mcg/mL: Susceptible Enterobacter cloacae complex TRIMETHOPRIM/ SULFAMETHOXAZOLE JOSEE MCG/ML <=20 mcg/mL: Susceptible Enterobacter cloacae complex PIPERACILLIN/ TAZOBACTAM JOSEE MCG/ML <=4 mcg/mL: Susceptible Comment:Aminoglycosides shou ld not be used as monotherapy for infections outside the urinary tract. Consultation with an infectious diseases specialist is recommended. Dickson Lipscomb APRN-[facility] ORDERABLES Final Result [facility]# [id number] [address] [place] [address] * IR VENOUS ACCESS (12/14/2024 2:52 PM CDT) Narrative 12/14/2024 2:52 PM CDT Order information only. Exam was auto-finalized. Evan Johnston MD IR ORDERABLES Final Re sult * DIGOXIN LEVEL (12/14/2024 10:55 AM CDT) DIGOXIN LEVEL 0.40 0.5 - 1.2 ng/mL 12/14/2024 11:52 AM CDT [facility] [employer] [facility] Blood Venipuncture / Unknown 12/14/2024 10:55 AM CDT 12/14/2024 11:01 AM CDT Narrative [facility] [employer] [facility] - 12/14/2024 11:52 AM CDT Adults Therapeutic range: 0.5-1.2 ng/mL High: >2.0 ng/mL Toxic concentration: >4.0 ng/mL Reed Lees MD CHEMISTRY ORDERABLES Final Resul t Performing Organization Address [facility]/ZIP Co de Phone Number [facility] [employer] [facility]# [id number] [address] [place] [address] * (ABNORMAL) BLOOD GAS VENOUS (12/13/2024 7:20 PM CDT) PH, VENOUS 7.40 7.32 - 7.43 12/13/2024 7:33 PM CDT [facility] LABORATORY [facility] PCO2 VENOUS 37(L) 38 - 50 mm Hg 12/13/2024 7:33 PM CDT [facility] LABORATORY [facility] PO2 VENOUS 50(H) 25 - 40 mm Hg 12/13/2024 7:33 PM CDT [facility] LABORATORY [facility] HCO3 VENOUS 23 22 - 29 mmol/L 7:33 PM T [facility] LABORATORY [facility] BASE EXCESS VENOUS -1.5 Reference Range Not Established mmol/L 12/13/2024 7:33 PM [facility] LABORATORY [facility] HEMOGLOBIN VENOUS 9.7 No Ref Range Estab g/dL 12/13/2024 7:33 PM T [facility] LABORATORY [facility] O2 SAT EST VENOUS 87(H) 40 - 70 % 12/13/2024 7:33 PM T [facility] [employer] [facility] Blood, venous Venipuncture / Unknown 12/13/2024 7:20 PM CDT 12/13/2024 7:30 PM CDT Gabriela Powell MD ABG ORDERABLES Final Result [facility] [employer] [facility]# [id number] [address] [place] [address] * TRANSFUSE FROZEN PLASMA (12/13/2024 2:15 PM CDT) Only the most recent of2 resultswithin the time period is included. Stanley Stern MD BLOOD TRANSFUSION ORDERABLES Fin al Result * PREPARE FRESH FROZEN PLASMA (12/13/2024 1:09 PM CDT) Only the most recent of2 resultswithin the time period is included. [facility] COMPONENT TYPE [id number] [facility] [employer] [facility] COMPONENT IDENTIFICATION [id number] [facility] [employer] [facility] UNIT ABO B [facility] -- [facility] UNIT RH POS [facility] -- [facility] COMPONENT STATUS Transfused ME [facility] -- [facility] COMPONENT EXPIRATION DATE/TIME [id number] [facility] -- [facility] COMPONENT CODING SYSTEM 7300 [facility] -- .[facility] VOLUME, BLOOD PRODUCT 234 [facility] -- [facility] 12/13/2024 1:09 PM CDT Stanley Stern MD LAB TRANSFUSION ORDERABLES Edite d Result - Final [facility] -- [facility] CLIA# [id number] [address] [facility] [place] [address] * DC ANES INSERT CATH, ART, PERCUT, SHORTTERM (12/09/2024 8:46 AM CDT) Narrative Usha Toribio CRNA - 12/09/2024 8:46 AM CDT Usha Toribio CRNA 12/09/2024 8:47 AM Arterial Line Insertion Start Time: 12/09/2024 7:50 AM End Time: 12/09/2024 7:58 AM Patient location during procedure: OR Staffing Performed: MILAGRO/NICOLA Authorized by: Williams Perez MD Performed by: Usha Toribio CRNA time out called Patient was prepped and draped in usual sterile fashion Indications: multiple ABGs and hemodynamic monitoring Hand hygiene performed prior to procedure Sterile Barriers: gloves, cap and mask Preparation: skin prepped with ChloraPrep Skin prep agent dried: skin prep agent completely dried prior to procedure Patient position: flat Location: right radial Catheter type: arterial introducer Catheter size: 20 G Catheter Length (in.): 2 [place] Identification: ultrasound guided Number of attempts: 1 Successful placement: yes Assessment: blood return through port Procedure uneventful Post-procedure: dressing applied and line secured Williams Perez MD PROCEDURE/MINOR SURGICAL ORDE RABLUIS CARLOS Final Result * PATHOLOGY (12/09/2024 8:25 AM CDT) CASE REPORT Surgical Pathology Report Case: [id number] Authorizing Provider: Evan Johnston MD Collected: 12/09/2024 08:25 AM Ordering Location: [facility] Received: 12/09/2024 03:10 PM Operating Room Pathologist: Goldie Kearns MD Specimens: A) - Neck, RIGHT MODIFIED RADICAL NECK DISSECTION B) - Mouth, ANTERIOR MANDIBLE MARGIN C) - Mouth, ANTERIOR MANDIBLE; STITCH SWARTZ ANTERIOR D) - Mouth, INFERIOR MANDIBLE MARGIN E) - Mandible, ADDITONAL ANTERIOR MARGIN F) - Mandible, ANTERIOR MARGIN NUMBER TWO G) - Mouth, Right/anterior composite resection of mandible H) - Mandible, Additional inferior margin of the mandible I) - Cheek, left, Left Buccal Mucosa J) - Submandibular gland 12:02 PM CDT [facility] - [facility] FINAL DIAGNOSIS Lymph nodes, right neck, modified radical dissection: - Enlarged lymph nodes with reactive follicular hyperplasia and sinus histiocytosis - No evidence of metastatic carcinoma in 38 lymph nodes (0/38) Submandibular gland, right neck, dissection: - No evidence of malignancy Oral cavity, anterior mandible margin, excision (FS1): - High-grade (at least moderate) keratinizing dysplasia (see microscopic description) Oral cavity, anterior mandible, excision: - Mild-moderate keratinizing dysplasia - Margins of resection for moderate dysplasia: Negative; 2 mm right and left mucosal margins - Bacterial colonization - No evidence of invasive carcinoma - See microscopic description Oral cavity, inferior mandible margin, excision (FS2): - Skeletal muscle and adipose tissue with no evidence of malignancy (see microscopic description) Oral cavity, additional anterior mandible margin, excision: - Inflamed squamous mucosa with no overt dysplasia or malignancy Oral cavity, anterior mandible margin #2, excision (FS3): - Inflamed squamous mucosa with no overt dysplasia or malignancy Oral cavity, right/anterior mandible, composite resection: - Squamous cell carcinoma, well-moderately differentiated, keratinizing type, with the following features: 1. Size: 4.0 cm 2. Depth of invasion: 21 mm into mandibular bone 3. Lymphovascular space invasion: Not identified 4. Perineural invasion: Not identified 5. Margins of resection: Negative; 2 mm medial and anterior soft tissue margins 6. Stage: pT4, pN0 - High-grade (moderate) keratinizing dysplasia 1. Margins of resection: Negative; 3 mm lateral mucosal margin Oral cavity, additional inferior mandible margin, excision: - No evidence of malignancy Oral cavity, left buccal mucosa, excision: - Squamous mucosa with lichenoid chronic inflammation and hyperparakeratosis - No evidence of malignancy - See microscopic description 12:02 PM CDT [facility] at 1202 CDT GROSS DESCRIPTION The specimens are received in nine containers each labeled Chase Lainez. Received in the first container additionally labeled right modified radical neck dissection are multiple irregular fragments of fu-yellow, lobulated adipose tissue measuring 14.7 x 7.5 x 3 cm in aggregate. An attached salivary gland is present measuring 3.8 x 2.5 x 1.7 cm. Sections show a fu-yellow, lobulated cut surface. No mass is identified. [employer] Area Supervisor sections are submitted in cassette labeled J1. The remaining adipose tissue contains multiple lymph nodes ranging from 0.2 to 2.2 cm in greatest dimension. The largest lymph node measures 2.2 x 1.7 x 1.1 cm and is sectioned to show a fu-white, grossly positive cut surface measuring 1.2 x 1.1 x 1.1 cm. The lymph nodes are submitted entirely in cassettes labeled A1 through A4-7 lymph nodes in each cassette, intact; A5-4 lymph nodes, intact; A6 through A10-2 lymph nodes in each cassette, bisected (1 lymph node inked black); A11 and A12-1 lymph node in each cassette, bisected; A13 through S55-uwinqqo lymph node, serially sectioned. Received in the second container additionally labeled anterior mandible margin is a single irregular fragment of pale-fu tissue measuring 0.6 x 0.2 x 0.2 cm. The specimen has been entirely submitted for frozen section as FS1. Entirely submitted in cassette labeled B1. Received in the third container additionally labeled anterior mandible stitch swartz anterior is a 1.3 x 0.9 x 0.3 cm portion of pink-becerra, ragged mucosa with an attached fu-yellow tooth on the anterior aspect measuring 2.2 x 0.5 x 0.4 cm. The specimen is received with a single suture that has been previously designated as anterior that is redesignated as 12:00. The specimen is inked as follows: 12:00-3:00-6:00: Black and 6:00-9:00-12:00: Blue. The mucosal surface is remarkable for a fu-white, granular lesion measuring 0.7 x 0.5 cm, less than 0.1 cm from the 6:00 margin, 0.1 cm from the 3:00 margin, and 0.1 cm from the 9:00 margin. The portion of mucosa submitted entirely in cassettes labeled C1-C4 (1: 12:00 margin, perpendicular; 4: 6:00 margin, perpendicular). Received in the fourth container additionally labeled inferior mandible margin is a single irregular fragment of pale-fu tissue measuring 0.9 x 0.8 x 0.3 cm. The specimen has been entirely submitted for frozen section as FS2. Entirely submitted in cassette labeled D1. Received in the fifth container additionally labeled mandible additional anterior margin is a single irregular fragment of pale-fu, ragged tissue measuring 2.1 x 0.8 x 0.3 cm. The specimen is received unoriented. Entirely submitted in cassette labeled E1. Received in the sixth container additionally labeled mandible anterior margin #2 are 2 irregular fragments of pale-fu tissue ranging from 0.6 to 0.7 cm in greatest dimension. The specimen has been entirely submitted for frozen section as FS3. Entirely submitted in cassette labeled F1. Received in the seventh container additionally labeled right/anterior composite resection of mandible is a portion of right mandible with attached soft tissue and mucosa measuring 6.5 cm from anterior to posterior, 4.5 cm from superior to inferior, and 3.9 cm from medial to lateral. The portion of pink-becerra mucosa measures 5.1 cm from superior to inferior and 3.8 cm from medial to lateral. Multiple teeth are present. The specimen is inked as follows: Lateral-blue, anterior-yellow, inferior-green, and medial-black. The mucosal surface is remarkable for a pale-fu, friable, well-defined, granular lesion measuring 3.6 cm from anterior to posterior, 3.5 cm from medial to lateral, and 0.7 cm from superior to inferior. The lesion lies 0.3 cm from the medial mucosal margin, 0.5 cm from the lateral mucosal margin, 0.7 cm from the anterior mucosal margin, and 1.7 cm from the posterior mucosal margin. The specimen is sectioned from anterior to posterior to show a fu-white, friable, focally firm mass measuring 4 cm from anterior to posterior and 2.4 cm from medial to lateral with a greatest depth of invasion of 2.1 cm. The mass lies 0.3 cm from the anterior soft tissue margin, 0.3 cm from the medial soft tissue margin, 0.5 cm from the lateral soft tissue margin, 0.7 cm from the inferior soft tissue margin, and greater than 2 cm from the anterior and posterior bone margins. The mass involves the attached bone and tooth cavity. Received in the same container are 2 free-floating teeth ranging from 1.8 to 2.2 cm in greatest dimension. [employer] Area Supervisor sections are submitted in cassettes labeled G1-posterior mucosal and soft tissue margin, perpendicular; G2-anterior bone margin, en face; G3-posterior bone margin, en face; G4-greatest depth of invasion with closest inferior soft tissue margin; G5-mass with closest lateral mucosal and soft tissue margin; G6-mass with closest medial mucosal and soft tissue margin and bone involvement; G7-additional section of mass with bone involvement and tooth cavity; G8-mass with closest anterior mucosal and soft tissue margin; G9-additional section of mass with anterior soft tissue margin. Cassettes 2-3, 6-7 RDO decalcification. Received in the eighth container additionally labeled additional inferior margin of the mandible is a single irregular fragment of fu-brown, ragged tissue measuring 3.5 x 0.9 x 0.3 cm. The specimen is received unoriented. Entirely submitted in cassette labeled H1. Received in the ninth container additionally labeled left buccal mucosa is a 0.7 x 0.4 x 0.2 cm fu-white, verrucoid mucosal excision. The resection margin is inked black. Entirely submitted in cassette labeled I1. SMB 5 12:02 PM [facility] MICROSCOPIC DESCRIPTION The slides are labeled [id number] and Chase Lainez. Sections of the right modified radical neck dissection show no evidence of metastatic carcinoma in 38 lymph nodes on routine-stained sections, nor with a cytokeratin immunohistochemical stain. Noted throughout the lymph node dissection are enlarged lymph nodes with follicular hyperplasia and/or sinus histiocytosis, for which additional immunohistochemical stains were performed to further evaluate. CD20 highlights B cells within numerous follicles of varying sizes and scattered interfollicular B cells. CD3 highlights predominantly interfollicular T cells with scattered follicular forms. CD21 highlights intact, sometimes expanded follicular dendritic cell networks. CD10 and BCL6 highlight germinal center B cells, which are negative for BCL2. The above immunophenotype favors reactive follicular hyperplasia. No evidence of overt lymphoma or metastatic carcinoma is appreciated. The submandibular gland included in the neck dissection is unremarkable. Sections of the anterior mandible margin (part B; FS1) show a fragment of squamous mucosa with high-grade (at least moderate) keratinizing dysplasia with underlying extensive chronic inflammation. Focally, the base of the surface is slightly irregular; however, no definite invasion is identified. Deeper levels were reviewed and show similar findings. Sections of the anterior mandible (part C) show mild-moderate keratinizing dysplasia involving squamous mucosa with extensive chronic inflammation. Focally, the base of the surface is slightly irregular; however, no definite invasion is identified on routine-stained sections, nor with cytokeratin immunohistochemical stains (performed on multiple blocks). A GMS stain shows bacterial colonization and no fungal organisms. Deeper levels were reviewed and show similar findings. Sections of the inferior mandible margin, which was frozen as FS2 show skeletal muscle and adipose tissue with no evidence of malignancy on routine-stained sections, nor with a cytokeratin immunochemical stain. Sections of the mandible additional anterior margin (part E) and anterior margin #2 (part F, FS3) show similar findings, that of inflamed squamous mucosa with no overt features of dysplasia or malignancy. Sections of the right/anterior composite resection of the mandible show a single focus of well to moderately differentiated keratinizing squamous cell carcinoma which surrounds a tooth and invades into the mandible to a depth of invasion of 21 mm. No lymphovascular space invasion is identified on routine-stained sections. Moreover, no perineural invasion is identified on routine-stained sections, nor with an S100 immunohistochemical stain. The margins of resection are negative for invasive carcinoma, which is 2 mm from the medial and anterior soft tissue margins. Surrounding the invasive component is high-grade (moderate) dysplasia. Margins of resection are negative for high-grade dysplasia, which is 3 mm from the lateral mucosal margin. Please see synoptic below for additional information. Sections of the additional inferior margin of the mandible show no evidence of malignancy. Sections of the left buccal mucosa show a fragment of squamous mucosa with lichenoid chronic inflammation and hyperparakeratosis. No evidence of overt squamous dysplasia or malignancy is identified. A GMS stain highlights bacterial colonization and no fungal organisms. 5 12:02 PM [facility] [employer] SERVICES [facility] INTRAOPERATIVE CONSULTATION FS1: Anterior mandible margin: - Atypical squamous epithelium, cannot exclude high-grade dysplasia The diagnosis was given to Dr. Johnston in [place] 17. Drs. Yunier Urbano and Jackelyn Frias FS2: Inferior mandible margin: - Atypical cells present, cannot exclude carcinoma The diagnosis was given to Dr. Johnston in [place] 17. Drs. Yunier Urbano, Yina Jacobs, Jackelyn Frias, and Merle Vargas FS 3: Anterior margin #2: - Negative for malignancy and high-grade dysplasia The diagnosis was given to Dr. Johnston in [place] 17. Drs. 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) 5 12:02 PM [facility] SYNOPTIC REPORT ORAL CAVITY ORAL CAVITY - A, G 8th Edition - Protocol posted: 10/17/2022 SPECIMEN Procedure: Mandibulectomy: composite Procedure: Neck (lymph node) dissection: modified radical TUMOR Tumor Focality: Unifocal Tumor Site: Oral cavity: Mandible Tumor Laterality: Right Tumor Size: Greatest Dimension (Centimeters): 4.0 cm Histologic Type: : Squamous cell carcinoma, conventional (keratinizing) Tumor Depth of Invasion (DOI): 21 mm Lymphatic and / or Vascular Invasion: Not identified Perineural Invasion: Not identified MARGINS Specimen Margin Status for Invasive Tumor: All specimen margins negative for invasive tumor Distance from Invasive Tumor to Closest Specimen Margin: 2 mm Closest Specimen Margin(s) to Invasive Tumor: lateral and anterior soft tissue Specimen Margin Status for Noninvasive Tumor (High-grade Dysplasia): All specimen margins negative for high-grade dysplasia / in situ disease Distance from Noninvasive Tumor to Closest Specimen Margin: 3 mm Closest Specimen Margin(s) to Noninvasive Tumor: lateral mucosal margin Tumor Bed Margin Status: Tumor Bed Margin Orientation: Unoriented to true margin surface Tumor Bed Margin Status for Invasive Tumor: All tumor bed margins negative for invasive tumor Distance from Invasive Tumor to True Margin Surface: Cannot be determined Tumor Bed Margin Status for Noninvasive Tumor: High-grade dysplasia / in situ disease present at tumor bed margins Tumor Bed Margin(s) Involved by Noninvasive Tumor: anterior mandible (part B) REGIONAL LYMPH NODES Regional Lymph Node Status: : All regional lymph nodes negative for tumor Number of Lymph Nodes Examined: 38 pTNM CLASSIFICATION (AJCC 8th Edition) Reporting of pT, pN, and (when applicable) pM categories is based on information available to the pathologist at the time the report is issued. As per the AJCC (Chapter 1, 8th Ed.) it is the managing physician's responsibility to establish the final pathologic stage based upon all pertinent information, including but potentially not limited to this pathology report. pT Category: pT4a pN Category: pN0 ADDITIONAL FINDINGS Additional Findings: Keratinizing dysplasia, moderate Additional Findings: Inflammation: Chronic Additional Findings: Colonization, bacterial 12:02 PM [facility] COMMENT Special stain, immunohistochemical, and/or in situ hybridization results are interpreted with controls that demonstrate appropriate staining reactions. Note on use of immunohistochemistry reagents and in situ hybridization probes: These tests were developed and their performance characteristics determined by [facility], Department of Laboratory Medicine. It has not been cleared or approved by the U.S. Food and Drug Administration. The FDA has determined that such clearance or approval is not necessary. The test is used for clinical purposes. It should not be regarded as investigational or for research. This laboratory is certified to perform high complexity testing. Frozen section/operating room consultation, gross examination and dissection, and case sign out may have been performed in part or completely in the following laboratories: [facility], CLIA #[id number] [address] [place] [address] [facility], [place] #[id number] [address] [place] [address] [facility], [place] #[id number] [address] [place] [address] This report was created with the JAYS voice-activated dictation system. Inherent to this system is the possibility of syntax, grammar, punctuation and other errors that could impact the interpretation of the report. If there are interpretative questions about aspects of this report, please contact the performing pathologist. 12:02 PM [facility] Tissue ENTIRE NECK / Unknown Collection / Unknown 12/09/2024 8:25 AM CDT 12/09/2024 3:10 PM CDT Tissue specimen (specimen) ENTIRE MOUTH REGION / Unknown 12/09/2024 10:01 AM CDT 12/09/2024 3:10 PM CDT Tissue specimen (specimen) ENTIRE MOUTH REGION / Unknown 12/09/2024 10:03 AM CDT 12/09/2024 3:10 PM CDT Tissue specimen (specimen) ENTIRE MOUTH REGION / Unknown 12/09/2024 10:24 AM CDT 12/09/2024 3:10 PM CDT Tissue specimen (specimen) ENTIRE MANDIBLE / Unknown 12/09/2024 10:31 AM CDT 12/09/2024 3:10 PM CDT Tissue specimen (specimen) ENTIRE MANDIBLE / Unknown 12/09/2024 10:32 AM CDT 12/09/2024 3:10 PM CDT Tissue specimen (specimen) ENTIRE MOUTH REGION / Unknown 12/09/2024 11:11 AM CDT 12/09/2024 3:10 PM CDT Tissue specimen (specimen) ENTIRE MANDIBLE / Unknown 12/09/2024 11:14 AM CDT 12/09/2024 3:10 PM CDT Tissue specimen (specimen) CHEEK STRUCTURE / Unknown 12/09/2024 11:17 AM CDT 12/09/2024 3:10 PM CDT Tissue specimen (specimen) ENTIRE SUBMANDIBULAR GLAND / Unknown 12/09/2024 11:17 AM CDT 12/09/2024 3:10 PM CDT Evan Johnston MD PATHOLOGY/CYTOLOGY ORDER DANIEL Final Result [facility]# [id number] [address] [place] [address] * DC ANES INSERT ENDOTRACHEAL AIRWAY (12/09/2024 7:41 AM CDT) Narrative Usha Toribio CRNA - 12/09/2024 7:41 AM CDT Usha Toribio CRNA 12/09/2024 8:46 AM Airway Date/Time: 12/09/2024 7:41 AM Location: OR Plan: elective intubation Patient Identity Confirmed by: Verbally with patient and armband Airway: not difficult Staffing Performed: ENVIRONMENTAL TECHNOLOGY PROFESSOR/CAA Authorized by: Williams Perez MD Performed by: Usha Toribio CRNA Indications and Patient Condition: Indications for Airway Management: Anesthesia and airway protection Sedation Level: general anesthesia Preoxygenated: yes Patient Position: Sniffing Mask Difficulty Assessment: 2 - vent by mask + OA or adjuvant +/- NMBA Oral Airway: 100mm Plan to extubate at end of case: Yes Final Airway Details: Final Airway Type: Endotracheal airway ETT Cuffed: Yes Cuff Volume (mL): 10 Technique Used for Successful ETT Placement: Video laryngoscopy Devices/Methods Used in Placement: Intubating stylet Reason for advanced technique: pre-op assessment Blade Size: 4 Insertion Site: Oral ETT Size (mm): 8.0 Video Laryngoscopy Devices: GlideScope Measured from: Teeth ETT to Teeth (cm): 24 Tube secured with: Tape Placement Verified by: auscultation, end tidal CO2 and chest rise Cormack-Lehane Classification: Grade I - full view of glottis Number of Attempts at Approach: 1 Additional Procedure Information: atraumatic and dentition unchanged us Williams Perez MD PROCEDURE/MINOR SURGICAL ORDKell HANSEN Final Result * US LIVER SPLEEN (11/28/2024 9:13 AM CDT) Anatomical Region Laterality Modality Abdomen Ultrasound 11/28/2024 9:16 AM CDT Impressions 11/28/2024 9:22 AM CDT IMPRESSION: 1. Possible cirrhosis. 2. Splenomegaly. DICTATION LOCATION: Location [address] [place] [address] Narrative 11/28/2024 9:22 AM CDT US LIVER SPLEEN DATE: 11/28/2024 HISTORY: 54-year-old male with pancytopenia TECHNIQUE: Limited right upper quadrant ultrasound performed by an radiologic technologist chief in multiple projections. COMPARISON: None FINDINGS: PANCREAS: Not well seen LIVER: Diffusely coarsened and increased in echogenicity. Mild nodularity of the surface. VASCULATURE: The portal vein and visualized hepatic veins are patent with appropriate direction of flow. GALLBLADDER: Within normal limits. No stones, wall thickening, or pericholecystic fluid. COMMON DUCT: 3 mm in caliber. RIGHT KIDNEY: Survey images of the right kidney fail to demonstrate hydronephrosis. SPLEEN: Enlarged up to 18 cm. Procedure Note Cuate Cross MD - 11/28/2024 US LIVER SPLEEN DATE: 11/28/2024 HISTORY: 54-year-old male with pancytopenia TECHNIQUE: Limited right upper quadrant ultrasound performed by an radiologic technologist chief in multiple projections. COMPARISON: None FINDINGS: PANCREAS: Not well seen LIVER: Diffusely coarsened and increased in echogenicity. Mild nodularity of the surface. VASCULATURE: The portal vein and visualized hepatic veins are patent with appropriate direction of flow. GALLBLADDER: Within normal limits. No stones, wall thickening, or pericholecystic fluid. COMMON DUCT: 3 mm in caliber. RIGHT KIDNEY: Survey images of the right kidney fail to demonstrate hydronephrosis. SPLEEN: Enlarged up to 18 cm. IMPRESSION: 1. Possible cirrhosis. 2. Splenomegaly. DICTATION LOCATION: Location [address] [place] [address] Good Yi MD US ORDERABLES Final Result * (ABNORMAL) HEMOGLOBIN A1C (11/10/2024 12:30 PM CDT) HEMOGLOBIN A1C 5.9(H) <5.7 % 11/10/2024 1:10 PM CDT [facility] EST. AVG GLUCOSE, A1C 123 mg/dL 11/10/2024 1:10 PM CDT [facility] Blood Venipuncture / Unknown 11/10/2024 12:30 PM CDT 11/10/2024 12:40 PM CDT Narrative [facility] - 11/10/2024 1:10 PM CDT HGB A1C INTERPRETATION NORMAL: <5.7% PRE-DIABETES: 5.7 - 6.4% DIABETES: 6.5% OR GREATER us Faith RIVERA CHEMISTRY ORDERABLES Final R esult [facility] CLIA# [id number] [address] [place] [id number] from Last 3 Months or Most Recently Relevant to Health Maintenance Insurance Advance Directives For more information, please contact: [phone] * Full Code (Latest Code Status on File) Date Activated Date Inactivated Comments 12/30/2024 4:50 PM 01/19/2025 9:36 PM * Full Code Date Activated Date Inactivated Comments 12/09/2024 8:13 PM 12/30/2024 4:50 PM * Full Code Date Activated Date Inactivated Comments 12/09/2024 5:34 AM 12/09/2024 8:13 PM
== END 2025-02-18 11:50 | disposition home or self-care (01) ==
PROVIDERS: Visit Provider Radiology Radiation Oncology
DX: C06.9 Malignant neoplasm of mouth, unspecified (principal)
CPT/HCPCS: 78815; A9552